=== PATIENT | male | born 1975 | race Caucasian/White ===

== ENCOUNTER 2022-03-01 09:20 | Inpatient (IN) | payer OTHER ==
[2022-03-02] MEDS ORDERED: Acetaminophen 325 MG TAB PO PRN (20:57)
[2022-03-02] MEDS ORDERED: Ondansetron PF 4 MG/2 ML Vial IVP PRN (20:57)
[2022-03-02] MEDS ORDERED: Nitroglycerin 0.4 MG TAB (25 Tab Bottle) SL PRN (21:05)
[2022-03-02] MEDS ORDERED: Morphine 4 MG/ML VIAL SLOW IVP SCH (21:15)
[2022-03-02] MEDS: Atorvastatin Calcium 20 MG TAB PO SCH (21:18)
[2022-03-02] MEDS: traMADol HCl 50 MG TAB PO PRN (23:48)
[2022-03-03] MEDS: Morphine 4 MG/ML VIAL SLOW IVP PRN ×5 (03:19→20:43)
[2022-03-03 04:04] LABS: #Eosinphils 0.2 thou/uL (0.0-0.7); #Lymphocytes 1.8 thou/uL (1.20-3.40); #Monocytes 0.6 thou/uL (0.11-0.59); %Basophils 0.4 % (0.0-1.0); %Eosinophils 2.6 % (0.0-10.0); %Lymphocytes 20.8 % (21.0-51.0); %Monocytes 7.3 % (0.0-10.0); %Neutrophils 68.9 % (42.0-75.0); Hemoglobin 12.5 g/dL (14.0-18.0); Mean Corpuscular HGB CONC 31.3 g/dL (32.0-36.0); Mean Corpuscular Hemoglobin 31.4 pg (27.0-31.0); Platelet Count 159 10x3/uL (130-400); RBC Distribution Width 13.4 % (11.5-14.5); Red Blood Cell (RBC) Count 3.98 mill/uL (4.70-6.10); White Blood Cell (WBC) Count 8.8 10x3/uL (4.8-10.8)
[2022-03-03 04:12] LABS: INR-International Normal Ratio 1.2; PTT 42.3 sec (22.9-36.1); Prothrombin Time 16.1 sec (12.0-14.7)
[2022-03-03 04:22] LABS: Anion Gap 13 mmol/L (10-20); BUN (Urea Nitrogen) 31 mg/dL (8.9-20.6); Calc. Creatinine Clearance 131 mL/min (70-130); Calcium 9.3 mg/dL (7.8-10.44); Carbon Dioxide 32 mmol/L (22-29); Chloride 95 mmol/L (98-107); Estimated GFR 71; Glucose 168 mg/dL (70-105); Magnesium 2.2 mg/dL (1.6-2.6); Potassium 4.4 mmol/L (3.5-5.1); Sodium 136 mmol/L (136-145)
[2022-03-03] MEDS: Furosemide 40 MG/4 ML VIAL SLOW IVP SCH ×2 (06:22→12:35)
[2022-03-03] MEDS: traMADol HCl 50 MG TAB PO PRN ×3 (06:26→23:04)
[2022-03-03] MEDS: Spironolactone 25 MG TAB PO SCH (07:43)
[2022-03-03] MEDS: Carvedilol 25 MG TAB PO SCH ×2 (07:43→16:21)
[2022-03-03] MEDS: DOBUTamine 500 mg/250 ml 500 MG in Premix Bag 1 BAG IVPB SCH ×2 (07:56→20:41)
[2022-03-03] MEDS ORDERED: FLU VACC QS2022-23(6MOS UP)/PF 60 MCG/0.5 ML SYRINGE IM ONE (09:00)
[2022-03-03] MEDS ORDERED: Prevnar 13-Val Conj/PF 0.5 ML SYRINGE IM ONE (09:00)
[2022-03-03] MEDS: Atorvastatin Calcium 20 MG TAB PO SCH (20:43)
[2022-03-04] MEDS: Morphine 4 MG/ML VIAL SLOW IVP PRN ×5 (01:10→21:32)
[2022-03-04 03:37] LABS: #Basophils 0.1 thou/uL (0.0-0.2); #Eosinphils 0.3 thou/uL (0.0-0.7); #Lymphocytes 1.8 thou/uL (1.20-3.40); #Monocytes 0.8 thou/uL (0.11-0.59); %Basophils 0.6 % (0.0-1.0); %Lymphocytes 20.5 % (21.0-51.0); %Monocytes 8.8 % (0.0-10.0); %Neutrophils 67.1 % (42.0-75.0); Hemoglobin 11.6 g/dL (14.0-18.0); Mean Corpuscular HGB CONC 31.9 g/dL (32.0-36.0); Mean Corpuscular Hemoglobin 31.3 pg (27.0-31.0); Mean Corpuscular Volume 98.4 fl (78.0-98.0); Mean Platelet Volume 8.1 fL (7.4-10.4); Platelet Count 135 10x3/uL (130-400); RBC Distribution Width 13.3 % (11.5-14.5); Red Blood Cell (RBC) Count 3.71 mill/uL (4.70-6.10)
[2022-03-04 04:00] LABS: Anion Gap 13 mmol/L (10-20); BUN (Urea Nitrogen) 29 mg/dL (8.9-20.6); Calc. Creatinine Clearance 139 mL/min (70-130); Carbon Dioxide 29 mmol/L (22-29); Chloride 94 mmol/L (98-107); Estimated GFR 76; Glucose 135 mg/dL (70-105); Sodium 131 mmol/L (136-145)
[2022-03-04] MEDS: Furosemide 40 MG/4 ML VIAL SLOW IVP SCH ×2 (05:19→14:23)
[2022-03-04] MEDS: Spironolactone 25 MG TAB PO SCH (08:10)
[2022-03-04] MEDS: Carvedilol 25 MG TAB PO SCH ×2 (08:10→17:28)
[2022-03-04] MEDS: DOBUTamine 500 mg/250 ml 500 MG in Premix Bag 1 BAG IVPB SCH ×2 (10:26→22:59)
[2022-03-04] MEDS: Losartan 25 MG TAB PO SCH (12:15)
[2022-03-04] MEDS ORDERED: Diazepam 5 MG TAB PO PRN (14:13)
[2022-03-04] MEDS ORDERED: Communication Order-Pharmacy FS SCH (14:13)
[2022-03-04] MEDS ORDERED: Communication Order-Pharmacy FS ONE (14:15)
[2022-03-04] MEDS: traMADol HCl 50 MG TAB PO PRN (17:50)
[2022-03-04] MEDS: Atorvastatin Calcium 20 MG TAB PO SCH (21:32)
[2022-03-05] MEDS: traMADol HCl 50 MG TAB PO PRN ×3 (02:23→20:29)
[2022-03-05 04:19] LABS: #Eosinphils 0.3 thou/uL (0.0-0.7); #Lymphocytes 1.9 thou/uL (1.20-3.40); #Monocytes 1.2 thou/uL (0.11-0.59); #Neutrophils 6.9 thou/uL (1.40-6.50); %Basophils 0.3 % (0.0-1.0); %Eosinophils 3.2 % (0.0-10.0); %Lymphocytes 18.3 % (21.0-51.0); %Monocytes 11.4 % (0.0-10.0); %Neutrophils 66.9 % (42.0-75.0); Hemoglobin 11.7 g/dL (14.0-18.0); Mean Corpuscular HGB CONC 32.5 g/dL (32.0-36.0); Mean Corpuscular Hemoglobin 31.7 pg (27.0-31.0); Mean Corpuscular Volume 97.6 fl (78.0-98.0); Mean Platelet Volume 7.9 fL (7.4-10.4); Platelet Count 141 10x3/uL (130-400); RBC Distribution Width 13.1 % (11.5-14.5); Red Blood Cell (RBC) Count 3.71 mill/uL (4.70-6.10); White Blood Cell (WBC) Count 10.3 10x3/uL (4.8-10.8)
[2022-03-05 04:35] LABS: Anion Gap 15 mmol/L (10-20); BUN (Urea Nitrogen) 31 mg/dL (8.9-20.6); Calc. Creatinine Clearance 141 mL/min (70-130); Calcium 9.3 mg/dL (7.8-10.44); Carbon Dioxide 26 mmol/L (22-29); Chloride 95 mmol/L (98-107); Estimated GFR 77; Glucose 112 mg/dL (70-105); Magnesium 2.3 mg/dL (1.6-2.6); Potassium 4.9 mmol/L (3.5-5.1); Sodium 131 mmol/L (136-145)
[2022-03-05] MEDS: Morphine 4 MG/ML VIAL SLOW IVP PRN ×2 (05:09→12:13)
[2022-03-05] MEDS: Furosemide 40 MG/4 ML VIAL SLOW IVP SCH ×2 (05:10→13:25)
[2022-03-05] MEDS: Carvedilol 25 MG TAB PO SCH ×2 (09:18→17:14)
[2022-03-05] MEDS: Spironolactone 25 MG TAB PO SCH (09:19)
[2022-03-05] MEDS: Losartan 25 MG TAB PO SCH (11:45)
[2022-03-05] MEDS: DOBUTamine 500 mg/250 ml 500 MG in Premix Bag 1 BAG IVPB SCH (12:20)
[2022-03-05] MEDS: Atorvastatin Calcium 20 MG TAB PO SCH (20:28)
[2022-03-06] MEDS: DOBUTamine 500 mg/250 ml 500 MG in Premix Bag 1 BAG IVPB SCH (02:34)
[2022-03-06 02:45] LABS: SARS-CoV-2 NAA Rapid Test Not Detected (NotDetected)
[2022-03-06] MEDS: Furosemide 40 MG/4 ML VIAL SLOW IVP SCH (05:15)
[2022-03-06] MEDS ORDERED: Dexamethasone 4 mg/ml Vial ONE (06:36)
[2022-03-06] MEDS ORDERED: Bupivacaine HCl 0.5%/Epinephrine 1:200,000/PF 30 ml Vial ONE (06:37)
[2022-03-06] MEDS ORDERED: fentaNYL PF 100 MCG/2 ML SYRINGE ONE (06:45)
[2022-03-06] MEDS ORDERED: Midazolam HCl 5 mg/5 ml Vial ONE (06:45)
[2022-03-06] MEDS ORDERED: Dexmedetomidine 200 MCG/2 ML VIAL ONE ×2 (06:45→07:04)
[2022-03-06] MEDS ORDERED: PHENYLEPHRINE-NS 100 MCG/ML 10 ML SYRINGE ONE (07:05)
[2022-03-06] MEDS ORDERED: Heparin 10,000 UNITS/1 ML VIAL 30,000 UNITS in Sodium Chloride 0.9% 1,000 ML FS SCH (07:15)
[2022-03-06] MEDS ORDERED: Milrinone 10 MG/10 ML VIAL ONE (07:15)
[2022-03-06] MEDS: Spironolactone 25 MG TAB PO SCH (07:26)
[2022-03-06] MEDS: Carvedilol 25 MG TAB PO SCH (07:26)
[2022-03-06] MEDS ORDERED: Sodium Bicarb 50 MEQ/50 ML Abboject 8.4% SYRINGE ONE (08:03)
[2022-03-06] MEDS ORDERED: Calcium Chloride 1 GM/10 ML Abboject SYRINGE ONE (08:03)
[2022-03-06] MEDS ORDERED: Vecuronium 10 MG VIAL ONE (08:03)
[2022-03-06] MEDS ORDERED: Heparin 5,000 UNITS/ML VIAL ONE (08:03)
[2022-03-06] MEDS ORDERED: Norepinephrine 4 MG/4 ML VIAL ONE (08:03)
[2022-03-06] MEDS ORDERED: Protamine Sulfate 250 MG/25 ML VIAL ONE (08:03)
[2022-03-06] MEDS ORDERED: Nitroglycerin 50 MG/250 ML BOT ONE (08:03)
[2022-03-06] MEDS ORDERED: Papaverine 60 MG/2 ML VIAL ONE (08:03)
[2022-03-06] MEDS ORDERED: Magnesium Sulfate 1 GM/2 ML VIAL ONE (08:03)
[2022-03-06] MEDS ORDERED: Heparin 30,000 units/30 ml VIAL ONE (08:03)
[2022-03-06] MEDS ORDERED: Aminocaproic Acid 5 GM/20 ML VIAL ONE (08:03)
[2022-03-06] MEDS ORDERED: Lidocaine 2% PF 100 mg/5 ml Syringe ONE (08:03)
[2022-03-06] MEDS ORDERED: Cardioplegic Soln 1,000 ML BAG ONE (08:03)
[2022-03-06] MEDS ORDERED: Thrombin 5000 UNITS/5 ML VIAL ONE (08:03)
[2022-03-06] MEDS ORDERED: Clindamycin/D5W 900 mg/50 ml Premix Bag ONE (08:07)
[2022-03-06] MEDS ORDERED: EPINEPHrine 1 MG/ML AMP ONE (09:29)
[2022-03-06 12:00] LABS: Actual Bicarbonate (HCO3a) 26.2 mEq/L (22-28); Base Excess (BEa) 1.2 mEq/L (-2.0 to +3.0); Calcium, Ionized (arterial) 1.13 mmol/L (1.12-1.30); Carboxyhemoglobin (COHb) 0.5 gm% (0.0-3.0); Hemoglobin (Hb) 11.6 g/dL (14.0-18.0); O2 Tension (PaO2), arterial 66.6 mmHg (80.0-100.0); Potassium - ABG Lab 5.41 mmol/L (3.70-5.30); Puncture Site Arterial Line
[2022-03-06] MEDS ORDERED: Hetastarch 6% 500 ML 500 ML IVPB PRN (12:10)
[2022-03-06] MEDS ORDERED: NOREPINEPHRINE 8 MG/250 ML-D5W 250 ML IVPB PRN (12:10)
[2022-03-06] MEDS ORDERED: Promethazine HCl 25 MG/ML VIAL IM PRN (12:10)
[2022-03-06] MEDS ORDERED: Bisacodyl 10 MG SUPP PR PRN (12:10)
[2022-03-06] MEDS ORDERED: niCARdipine 25 MG in Sodium Chloride 0.9% 250 ML 250 ML IVPB PRN (12:10)
[2022-03-06] MEDS ORDERED: Ventilator Sedation Protocol 1 EACH FS ONE (12:10)
[2022-03-06] MEDS ORDERED: Post-Op Insulin Drip Protocol IVPB ONE (12:10)
[2022-03-06] MEDS ORDERED: FENTANYL 50 MCG/ML 1 ML VIAL SLOW IVP PRN ×3 (12:10→18:44)
[2022-03-06] MEDS ORDERED: Nitroglycerin 50 MG/250 ML BOT 250 ML IVPB PRN (12:10)
[2022-03-06] MEDS ORDERED: Bisacodyl 5 MG TAB PO PRN (12:10)
[2022-03-06] MEDS ORDERED: Potassium Chloride 20 MEQ/100 ML PREMIX BAG IVPB PRN (12:10)
[2022-03-06] MEDS ORDERED: Mag-Al 1200 mg/1200 mg/30 ML UDCUP PO PRN (12:10)
[2022-03-06] MEDS ORDERED: Ondansetron PF 4 MG/2 ML Vial IVP PRN (12:10)
[2022-03-06] MEDS ORDERED: HYDROcodone/Acetaminophen 5/325 mg Tablet PO PRN ×3 (12:10→18:44)
[2022-03-06] MEDS ORDERED: Morphine 2 MG/ML VIAL SLOW IVP PRN (12:10)
[2022-03-06] MEDS ORDERED: Magnesium 2 GM/50 ML(in water) 2 GM in Premix Bag 1 BAG IVPB SCH (12:15)
[2022-03-06] MEDS ORDERED: D5 1/2 NS w/20 mEq KCL 1,000 ML IV SCH (12:15)
[2022-03-06 12:19] LABS: Mean Corpuscular HGB CONC 32.7 g/dL (32.0-36.0); Mean Corpuscular Hemoglobin 32.3 pg (27.0-31.0); Mean Platelet Volume 7.8 fL (7.4-10.4); Platelet Count 162 10x3/uL (130-400); White Blood Cell (WBC) Count 22.2 10x3/uL (4.8-10.8)
[2022-03-06 12:29] LABS: INR-International Normal Ratio 1.4; Prothrombin Time 18.1 sec (12.0-14.7)
[2022-03-06 12:30] LABS: PTT 44.1 sec (22.9-36.1)
[2022-03-06] MEDS ORDERED: Insulin Regular 300 UNITS/3 ML VIAL SC PRN (12:30)
[2022-03-06] MEDS ORDERED: Dextrose 5% in Water 1,000 ML IV PRN (12:30)
[2022-03-06] MEDS ORDERED: Dextrose 50% Abboject 50 ML SYRINGE SLOW IVP PRN (12:30)
[2022-03-06] MEDS ORDERED: HUMULIN R 100 UNITS in Sodium Chloride 0.9% 100 ML IVPB SCH (12:30)
[2022-03-06 12:34] LABS: Anion Gap 15 mmol/L (10-20); BUN (Urea Nitrogen) 31 mg/dL (8.9-20.6); Calc. Creatinine Clearance 126 mL/min (70-130); Calcium 8.5 mg/dL (7.8-10.44); Carbon Dioxide 24 mmol/L (22-29); Chloride 99 mmol/L (98-107); Estimated GFR 69; Glucose 208 mg/dL (70-105); Potassium 5.5 mmol/L (3.5-5.1); Sodium 132 mmol/L (136-145)
[2022-03-06 12:53] LABS: Band 24 % (5-11); Eosinophils 1 % (0-10); Lymphocytes 10 % (21-51); MDiff Complete? YES; Metamyelocyte 1 % (0-0); Monocytes 2 % (0-10); Neutrophil 62 % (42-75); Platelet Morphology Comment Appears Adequate; RBC Morphology Normal
[2022-03-06] MEDS ORDERED: Midazolam HCl 2 mg/2 ml Vial SLOW IVP PRN (13:18)
[2022-03-06] MEDS: Losartan 25 MG TAB PO SCH (13:28)
[2022-03-06] MEDS ORDERED: DISCONTINUE PREVIOUS NARCOTIC PAIN MEDICATIONS AND BENZODIAZEPINES FS SCH (13:30)
[2022-03-06] MEDS ORDERED: Propofol 1,000 MG/100 ML VIAL IV PRN (13:30)
[2022-03-06] MEDS ORDERED: Fentanyl CADD 100 ML IV SCH (13:30)
[2022-03-06] MEDS ORDERED: Morphine 4 MG/ML VIAL SLOW IVP PRN (13:30)
[2022-03-06] MEDS ORDERED: Propofol BOLUS 1,000 MG/100 ML VIAL IV PRN (13:30)
[2022-03-06] MEDS ORDERED: Fentanyl BOLUS 250 ML IVPB PRN (13:30)
[2022-03-06] MEDS ORDERED: Fentanyl CADD 100 ML ONE (13:32)
[2022-03-06] MEDS: CEFAZOLIN 2 GM in Sodium Chloride 0.9% 100 ML IVPB SCH ×2 (13:57→21:05)
[2022-03-06] MEDS: Clindamycin/D5W 900 MG in Premix Bag 1 BAG IVPB SCH ×2 (15:01→19:45)
[2022-03-06] MEDS: DOBUTamine 500 mg/250 ml 250 ML IVPB SCH (17:35)
[2022-03-06 17:47] LABS: Actual Bicarbonate (HCO3a) 26.1 mEq/L (22-28); Base Excess (BEa) 1.7 mEq/L (-2.0 to +3.0); CO2 Tension 39.9 mmHg (35.0-45.0); Calcium, Ionized (arterial) 1.13 mmol/L (1.12-1.30); Carboxyhemoglobin (COHb) 0.2 gm% (0.0-3.0); Hemoglobin (Hb) 11.1 g/dL (14.0-18.0); O2 Tension (PaO2), arterial 68.7 mmHg (80.0-100.0); Potassium - ABG Lab 4.89 mmol/L (3.70-5.30); pH, Arterial 7.43 (7.35-7.45)
[2022-03-06 17:48] LABS: ALV-art Gradient 202.275 mmHg (0-20); Puncture Site Arterial Line
[2022-03-06] MEDS: Budesonide 0.5 MG/2 ML NEB NEB SCH (18:44)
[2022-03-06] MEDS: HYDROcodone/Acetaminophen 5/325 mg Tablet PO PRN (18:48)
[2022-03-06 18:54] LABS: Hemoglobin 9.9 g/dL (14.0-18.0)
[2022-03-06 18:58] LABS: Potassium 4.8 mmol/L (3.5-5.1)
[2022-03-06] MEDS ORDERED: Albumin 25% 25 GM/100 ML BOT IVPB PRN (20:03)
[2022-03-06] MEDS: Famotidine/PF 20 mg/2ml Vial SLOW IVP SCH (20:34)
[2022-03-06] MEDS: Atorvastatin Calcium 40 MG TAB PO SCH (20:34)
[2022-03-07] MEDS: Clindamycin/D5W 900 MG in Premix Bag 1 BAG IVPB SCH ×2 (01:23→07:48)
[2022-03-07 04:31] LABS: #Lymphocytes 0.7 thou/uL (1.20-3.40); #Monocytes 0.5 thou/uL (0.11-0.59); #Neutrophils 8.8 thou/uL (1.40-6.50); %Basophils 0.1 % (0.0-1.0); %Eosinophils 0.1 % (0.0-10.0); %Lymphocytes 6.8 % (21.0-51.0); %Monocytes 4.6 % (0.0-10.0); %Neutrophils 88.5 % (42.0-75.0); Hemoglobin 9.9 g/dL (14.0-18.0); Mean Corpuscular Hemoglobin 31.5 pg (27.0-31.0); Mean Corpuscular Volume 98.4 fl (78.0-98.0); Mean Platelet Volume 8.5 fL (7.4-10.4); Platelet Count 122 10x3/uL (130-400); Red Blood Cell (RBC) Count 3.15 mill/uL (4.70-6.10); White Blood Cell (WBC) Count 9.9 10x3/uL (4.8-10.8)
[2022-03-07 04:41] LABS: Anion Gap 13 mmol/L (10-20); BUN (Urea Nitrogen) 33 mg/dL (8.9-20.6); Calc. Creatinine Clearance 127 mL/min (70-130); Calcium 8.3 mg/dL (7.8-10.44); Carbon Dioxide 24 mmol/L (22-29); Chloride 100 mmol/L (98-107); Estimated GFR 69; Glucose 111 mg/dL (70-105); Potassium 4.7 mmol/L (3.5-5.1); Sodium 132 mmol/L (136-145)
[2022-03-07] MEDS: FENTANYL 50 MCG/ML 1 ML VIAL SLOW IVP PRN ×5 (05:13→23:25)
[2022-03-07] MEDS: CEFAZOLIN 2 GM in Sodium Chloride 0.9% 100 ML IVPB SCH (05:58)
[2022-03-07] MEDS: DOBUTamine 500 mg/250 ml 250 ML IVPB SCH (06:51)
[2022-03-07] MEDS ORDERED: Dextrose 50% Abboject 50 ML SYRINGE SLOW IVP PRN (06:52)
[2022-03-07] MEDS ORDERED: HumaLOG 300 UNITS/3 ML VIAL SC PRN (06:52)
[2022-03-07] MEDS ORDERED: Dextrose 5% in Water 1,000 ML IV PRN (06:52)
[2022-03-07] MEDS: Budesonide 0.5 MG/2 ML NEB NEB SCH ×2 (07:45→18:43)
[2022-03-07] MEDS: Magnesium 2 GM/50 ML(in water) 2 GM in Premix Bag 1 BAG IVPB SCH (07:48)
[2022-03-07] MEDS: HYDROcodone/Acetaminophen 5/325 mg Tablet PO PRN ×3 (07:49→21:12)
[2022-03-07] MEDS: Famotidine/PF 20 mg/2ml Vial SLOW IVP SCH ×2 (07:50→20:27)
[2022-03-07] MEDS: Aspirin 325 MG TAB PO SCH (07:50)
[2022-03-07] MEDS ORDERED: Furosemide 40 MG/4 ML VIAL ONE (10:24)
[2022-03-07] MEDS ORDERED: Furosemide 40 MG/4 ML VIAL SLOW IVP SCH ×2 (10:45)
[2022-03-07] MEDS ORDERED: Insulin Glargine 30 UNITS/0.3 ML VIAL SC PRN (12:18)
[2022-03-07] MEDS: Furosemide 40 MG/4 ML VIAL SLOW IVP SCH (12:53)
[2022-03-07] MEDS: Atorvastatin Calcium 40 MG TAB PO SCH (20:28)
[2022-03-08] MEDS: FENTANYL 50 MCG/ML 1 ML VIAL SLOW IVP PRN ×3 (01:51→14:26)
[2022-03-08] MEDS: HYDROcodone/Acetaminophen 5/325 mg Tablet PO PRN ×5 (03:36→21:38)
[2022-03-08] MEDS: DOBUTamine 500 mg/250 ml 250 ML IVPB SCH (04:27)
[2022-03-08 04:42] LABS: #Eosinphils 0.1 thou/uL (0.0-0.7); #Lymphocytes 1.6 thou/uL (1.20-3.40); #Monocytes 1.1 thou/uL (0.11-0.59); #Neutrophils 11.7 thou/uL (1.40-6.50); %Basophils 0.1 % (0.0-1.0); %Eosinophils 0.7 % (0.0-10.0); %Lymphocytes 10.7 % (21.0-51.0); %Monocytes 7.6 % (0.0-10.0); %Neutrophils 80.8 % (42.0-75.0); Mean Corpuscular Hemoglobin 32.4 pg (27.0-31.0); Mean Corpuscular Volume 98.1 fl (78.0-98.0); Mean Platelet Volume 8.2 fL (7.4-10.4); Platelet Count 134 10x3/uL (130-400); RBC Distribution Width 13.1 % (11.5-14.5); Red Blood Cell (RBC) Count 3.09 mill/uL (4.70-6.10); White Blood Cell (WBC) Count 14.5 10x3/uL (4.8-10.8)
[2022-03-08 05:15] LABS: Anion Gap 14 mmol/L (10-20); BUN (Urea Nitrogen) 35 mg/dL (8.9-20.6); Calc. Creatinine Clearance 112 mL/min (70-130); Calcium 8.6 mg/dL (7.8-10.44); Carbon Dioxide 23 mmol/L (22-29); Chloride 98 mmol/L (98-107); Estimated GFR 59; Glucose 217 mg/dL (70-105); Potassium 4.4 mmol/L (3.5-5.1); Sodium 131 mmol/L (136-145)
[2022-03-08] MEDS: Furosemide 40 MG/4 ML VIAL SLOW IVP SCH ×2 (05:58→14:13)
[2022-03-08] MEDS ORDERED: DOBUTamine 500 mg/250 ml 250 ML IVPB SCH (06:57)
[2022-03-08] MEDS ORDERED: Metolazone 5 MG TAB PO SCH (07:00)
[2022-03-08] MEDS: Budesonide 0.5 MG/2 ML NEB NEB SCH ×2 (07:43→18:19)
[2022-03-08] MEDS: Famotidine/PF 20 mg/2ml Vial SLOW IVP SCH ×2 (07:59→20:59)
[2022-03-08] MEDS: Aspirin 325 MG TAB PO SCH (07:59)
[2022-03-08] MEDS: Magnesium 2 GM/50 ML(in water) 2 GM in Premix Bag 1 BAG IVPB SCH (07:59)
[2022-03-08] MEDS: Guaifenesin DM 100-10/5 ML UDCUP PO PRN (10:19)
[2022-03-08] MEDS ORDERED: Zolpidem Tartrate 5 MG TAB PO PRN (10:32)
[2022-03-08 11:00] VITALS: BMI 39.9
[2022-03-08] MEDS: Acetaminophen 325 MG TAB PO PRN (20:59)
[2022-03-08] MEDS: Atorvastatin Calcium 40 MG TAB PO SCH (20:59)
[2022-03-08] MEDS ORDERED: HumaLOG 300 UNITS/3 ML VIAL SC PRN (21:28)
[2022-03-08] MEDS ORDERED: Melatonin 3 MG TAB PO SCH (21:30)
[2022-03-08] MEDS ORDERED: FENTANYL 50 MCG/ML 1 ML VIAL SLOW IVP SCH (22:45)
[2022-03-08] MEDS ORDERED: Menthol/Camphor Lotion 222 ml Bottle TOP PRN (23:42)
[2022-03-08] MEDS ORDERED: Methyl Salicylate/Menthol 85 GM TUBE TOP PRN (23:54)
[2022-03-09] MEDS: HYDROcodone/Acetaminophen 5/325 mg Tablet PO PRN ×5 (01:30→19:33)
[2022-03-09] MEDS: Guaifenesin DM 100-10/5 ML UDCUP PO PRN ×2 (01:31→19:34)
[2022-03-09 05:16] LABS: #Eosinphils 0.4 thou/uL (0.0-0.7); #Lymphocytes 1.4 thou/uL (1.20-3.40); #Monocytes 1.3 thou/uL (0.11-0.59); #Neutrophils 9.4 thou/uL (1.40-6.50); %Basophils 0.2 % (0.0-1.0); %Eosinophils 2.8 % (0.0-10.0); %Lymphocytes 11.5 % (21.0-51.0); %Monocytes 10.7 % (0.0-10.0); %Neutrophils 74.8 % (42.0-75.0); Hemoglobin 8.6 g/dL (14.0-18.0); Mean Corpuscular HGB CONC 32.1 g/dL (32.0-36.0); Mean Corpuscular Hemoglobin 31.5 pg (27.0-31.0); Mean Platelet Volume 7.9 fL (7.4-10.4); Platelet Count 138 10x3/uL (130-400); RBC Distribution Width 12.9 % (11.5-14.5); Red Blood Cell (RBC) Count 2.74 mill/uL (4.70-6.10); White Blood Cell (WBC) Count 12.5 10x3/uL (4.8-10.8)
[2022-03-09 05:40] LABS: Anion Gap 14 mmol/L (10-20); BUN (Urea Nitrogen) 47 mg/dL (8.9-20.6); Calc. Creatinine Clearance 97 mL/min (70-130); Calcium 8.5 mg/dL (7.8-10.44); Carbon Dioxide 24 mmol/L (22-29); Chloride 97 mmol/L (98-107); Estimated GFR 51; Glucose 159 mg/dL (70-105); Potassium 4.3 mmol/L (3.5-5.1); Sodium 131 mmol/L (136-145)
[2022-03-09] MEDS: Furosemide 40 MG/4 ML VIAL SLOW IVP SCH ×2 (06:21→13:00)
[2022-03-09] MEDS: Budesonide 0.5 MG/2 ML NEB NEB SCH ×2 (07:32→18:53)
[2022-03-09] MEDS: Aspirin 325 MG TAB PO SCH (08:15)
[2022-03-09] MEDS: Famotidine/PF 20 mg/2ml Vial SLOW IVP SCH (08:49)
[2022-03-09] MEDS ORDERED: FENTANYL 50 MCG/ML 1 ML VIAL SLOW IVP SCH (09:00)
[2022-03-09] MEDS ORDERED: Mag-Al 1200 mg/1200 mg/30 ML UDCUP PO PRN (09:26)
[2022-03-09] MEDS ORDERED: Bisacodyl 10 MG SUPP PR PRN (09:26)
[2022-03-09] MEDS ORDERED: diphenhydrAMINE 25 MG CAP PO PRN (09:26)
[2022-03-09] MEDS ORDERED: Bisacodyl 5 MG TAB PO PRN (09:26)
[2022-03-09] MEDS ORDERED: Mineral Oil ENEMA PR PRN (09:26)
[2022-03-09] MEDS ORDERED: Zolpidem Tartrate 5 MG TAB PO PRN (09:26)
[2022-03-09] MEDS ORDERED: Nitroglycerin 0.4 MG TAB (25 Tab Bottle) SL PRN (09:26)
[2022-03-09] MEDS ORDERED: Clopidogrel Bisulfate 75 MG TAB PO SCH (09:45)
[2022-03-09] MEDS ORDERED: Aspirin 81 mg Enteric Coated Tablet PO SCH (09:45)
[2022-03-09] MEDS ORDERED: Famotidine 20 MG TAB PO SCH (09:45)
[2022-03-09] MEDS: Clopidogrel Bisulfate 75 MG TAB PO SCH (10:35)
[2022-03-09] MEDS: Famotidine 20 MG TAB PO SCH (19:33)
[2022-03-09] MEDS: Atorvastatin Calcium 40 MG TAB PO SCH (19:33)
[2022-03-10] MEDS: HYDROcodone/Acetaminophen 5/325 mg Tablet PO PRN ×2 (00:24→05:24)
[2022-03-10] MEDS: Furosemide 40 MG/4 ML VIAL SLOW IVP SCH (05:24)
[2022-03-10] MEDS ORDERED: Morphine 4 MG/ML VIAL SLOW IVP SCH (06:45)
[2022-03-10] MEDS: Budesonide 0.5 MG/2 ML NEB NEB SCH ×2 (06:56→18:57)
[2022-03-10] MEDS: Famotidine 20 MG TAB PO SCH ×2 (08:47→20:32)
[2022-03-10] MEDS: Clopidogrel Bisulfate 75 MG TAB PO SCH (08:47)
[2022-03-10] MEDS: Aspirin 81 mg Enteric Coated Tablet PO SCH (08:48)
[2022-03-10] MEDS: HYDROcodone/Acetaminophen 10/325 mg Tablet PO PRN ×3 (11:07→20:32)
[2022-03-10 11:11] LABS: #Eosinphils 0.4 thou/uL (0.0-0.7); #Lymphocytes 1.4 thou/uL (1.20-3.40); #Monocytes 0.9 thou/uL (0.11-0.59); #Neutrophils 9.3 thou/uL (1.40-6.50); %Basophils 0.1 % (0.0-1.0); %Eosinophils 3.7 % (0.0-10.0); %Lymphocytes 11.5 % (21.0-51.0); %Neutrophils 77.6 % (42.0-75.0); Hemoglobin 8.5 g/dL (14.0-18.0); Mean Corpuscular HGB CONC 32.4 g/dL (32.0-36.0); Mean Corpuscular Hemoglobin 32.1 pg (27.0-31.0); Mean Corpuscular Volume 98.8 fl (78.0-98.0); Mean Platelet Volume 7.8 fL (7.4-10.4); Platelet Count 162 10x3/uL (130-400); RBC Distribution Width 13.1 % (11.5-14.5); Red Blood Cell (RBC) Count 2.65 mill/uL (4.70-6.10)
[2022-03-10 11:35] LABS: Anion Gap 14 mmol/L (10-20); BUN (Urea Nitrogen) 51 mg/dL (8.9-20.6); Calc. Creatinine Clearance 94 mL/min (70-130); Calcium 8.5 mg/dL (7.8-10.44); Carbon Dioxide 26 mmol/L (22-29); Chloride 93 mmol/L (98-107); Estimated GFR 49; Glucose 163 mg/dL (70-105); Potassium 3.9 mmol/L (3.5-5.1); Sodium 129 mmol/L (136-145)
[2022-03-10] MEDS: Cyclobenzaprine 10 MG TAB PO PRN ×2 (13:00→20:32)
[2022-03-10] MEDS: Atorvastatin Calcium 40 MG TAB PO SCH (20:32)
[2022-03-10] MEDS: Guaifenesin DM 100-10/5 ML UDCUP PO PRN (21:39)
[2022-03-11] MEDS: HYDROcodone/Acetaminophen 10/325 mg Tablet PO PRN ×3 (00:46→22:11)
[2022-03-11] MEDS: Guaifenesin DM 100-10/5 ML UDCUP PO PRN (01:44)
[2022-03-11] MEDS: Acetaminophen 325 MG TAB PO PRN (04:23)
[2022-03-11 04:53] LABS: #Eosinphils 0.5 thou/uL (0.0-0.7); #Lymphocytes 1.7 thou/uL (1.20-3.40); #Monocytes 1.3 thou/uL (0.11-0.59); #Neutrophils 11.1 thou/uL (1.40-6.50); %Basophils 0.2 % (0.0-1.0); %Eosinophils 3.6 % (0.0-10.0); %Lymphocytes 11.6 % (21.0-51.0); %Monocytes 8.6 % (0.0-10.0); Hemoglobin 8.9 g/dL (14.0-18.0); Mean Corpuscular HGB CONC 31.7 g/dL (32.0-36.0); Mean Corpuscular Hemoglobin 31.2 pg (27.0-31.0); Mean Corpuscular Volume 98.3 fl (78.0-98.0); Mean Platelet Volume 7.6 fL (7.4-10.4); Platelet Count 212 10x3/uL (130-400); RBC Distribution Width 13.1 % (11.5-14.5); Red Blood Cell (RBC) Count 2.85 mill/uL (4.70-6.10); White Blood Cell (WBC) Count 14.6 10x3/uL (4.8-10.8)
[2022-03-11 05:06] LABS: Anion Gap 14 mmol/L (10-20); BUN (Urea Nitrogen) 51 mg/dL (8.9-20.6); Calc. Creatinine Clearance 99 mL/min (70-130); Calcium 8.7 mg/dL (7.8-10.44); Carbon Dioxide 25 mmol/L (22-29); Chloride 94 mmol/L (98-107); Estimated GFR 52; Glucose 223 mg/dL (70-105); Potassium 4.6 mmol/L (3.5-5.1); Sodium 128 mmol/L (136-145)
[2022-03-11] MEDS: Budesonide 0.5 MG/2 ML NEB NEB SCH ×2 (06:49→19:05)
[2022-03-11] MEDS ORDERED: NOREPINEPHRINE 8 MG/250 ML-D5W 250 ML IVPB SCH (07:30)
[2022-03-11] MEDS ORDERED: Furosemide 40 MG/4 ML VIAL SLOW IVP SCH (07:30)
[2022-03-11 07:44] LABS: Actual Bicarbonate (HCO3v) 26 mEq/L (22-28); Base Excess 0.5 mEq/L (-2.0 to +3.0); Calcium, Ionized (venous) 1.09 mmol/L (1.16-1.32); Chloride (VBG) 95 mmol/L (98-106); Hemoglobin (Hb) 9.6 g/dL (13.2-17.3); Potassium (VBG) 4.37 mmol/L (3.70-5.30); Sodium 126.7 mmol/L (133-146); pH (venous) 7.38 (7.32-7.43)
[2022-03-11] MEDS: Aspirin 81 mg Enteric Coated Tablet PO SCH (08:21)
[2022-03-11] MEDS: Famotidine 20 MG TAB PO SCH ×2 (08:21→20:01)
[2022-03-11] MEDS: Clopidogrel Bisulfate 75 MG TAB PO SCH (08:23)
[2022-03-11] MEDS: Furosemide 40 MG/4 ML VIAL SLOW IVP SCH (08:42)
[2022-03-11] MEDS: DOBUTamine 500 mg/250 ml 250 ML IVPB SCH ×2 (10:48→22:13)
[2022-03-11] MEDS: Atorvastatin Calcium 40 MG TAB PO SCH (20:01)
[2022-03-11] MEDS: Cyclobenzaprine 10 MG TAB PO PRN (20:01)
[2022-03-12] MEDS: HYDROcodone/Acetaminophen 10/325 mg Tablet PO PRN ×2 (01:57→08:55)
[2022-03-12] MEDS: Budesonide 0.5 MG/2 ML NEB NEB SCH ×2 (07:33→18:18)
[2022-03-12] MEDS: Furosemide 40 MG/4 ML VIAL SLOW IVP SCH (08:45)
[2022-03-12] MEDS: Aspirin 81 mg Enteric Coated Tablet PO SCH (08:46)
[2022-03-12] MEDS: Famotidine 20 MG TAB PO SCH ×2 (08:46→20:23)
[2022-03-12] MEDS: Clopidogrel Bisulfate 75 MG TAB PO SCH (08:46)
[2022-03-12] MEDS ORDERED: Empagliflozin 10 MG TAB PO SCH (10:45)
[2022-03-12] MEDS ORDERED: Iron, Sodium Ferric Gluconate 250 MG in Sodium Chloride 0.9% 250 ML 250 ML IVPB SCH (11:30)
[2022-03-12] MEDS ORDERED: DOBUTamine 500 mg/250 ml 250 ML ONE (12:54)
[2022-03-12] MEDS: DOBUTamine 500 mg/250 ml 250 ML IVPB SCH ×2 (12:55→19:24)
[2022-03-12] MEDS ORDERED: Amiodarone 200 MG TAB PO SCH (13:30)
[2022-03-12] MEDS ORDERED: Enoxaparin Sodium 30 MG/0.3 ML SYRINGE SC SCH ×2 (13:30→21:00)
[2022-03-12] MEDS: Atorvastatin Calcium 40 MG TAB PO SCH (20:23)
[2022-03-12] MEDS: Amiodarone 200 MG TAB PO SCH (20:23)
[2022-03-13] MEDS: DOBUTamine 500 mg/250 ml 250 ML IVPB SCH ×3 (01:06→16:46)
[2022-03-13] MEDS: Budesonide 0.5 MG/2 ML NEB NEB SCH ×2 (07:05→18:08)
[2022-03-13] MEDS: HYDROcodone/Acetaminophen 10/325 mg Tablet PO PRN ×2 (08:06→16:48)
[2022-03-13] MEDS ORDERED: Furosemide 40 MG/4 ML VIAL SLOW IVP SCH (09:00)
[2022-03-13] MEDS ORDERED: Empagliflozin 10 MG TAB PO SCH (09:00)
[2022-03-13 09:26] LABS: #Eosinphils 0.3 thou/uL (0.0-0.7); #Lymphocytes 1.3 thou/uL (1.20-3.40); #Monocytes 1.2 thou/uL (0.11-0.59); #Neutrophils 11.7 thou/uL (1.40-6.50); %Basophils 0.1 % (0.0-1.0); %Eosinophils 2.2 % (0.0-10.0); %Lymphocytes 8.7 % (21.0-51.0); %Monocytes 8.2 % (0.0-10.0); %Neutrophils 80.8 % (42.0-75.0); Hemoglobin 8.2 g/dL (14.0-18.0); Mean Corpuscular HGB CONC 31.3 g/dL (32.0-36.0); Mean Corpuscular Hemoglobin 30.2 pg (27.0-31.0); Mean Corpuscular Volume 96.6 fl (78.0-98.0); Mean Platelet Volume 7.5 fL (7.4-10.4); Platelet Count 233 10x3/uL (130-400); RBC Distribution Width 13.5 % (11.5-14.5); White Blood Cell (WBC) Count 14.4 10x3/uL (4.8-10.8)
[2022-03-13 09:51] LABS: Anion Gap 17 mmol/L (10-20); BUN (Urea Nitrogen) 62 mg/dL (8.9-20.6); Calc. Creatinine Clearance 86 mL/min (70-130); Calcium 8.6 mg/dL (7.8-10.44); Carbon Dioxide 22 mmol/L (22-29); Chloride 93 mmol/L (98-107); Estimated GFR 44; Glucose 150 mg/dL (70-105); Potassium 4.7 mmol/L (3.5-5.1); Sodium 127 mmol/L (136-145)
[2022-03-13] MEDS: Amiodarone 200 MG TAB PO SCH ×3 (10:02→20:06)
[2022-03-13] MEDS: Aspirin 81 mg Enteric Coated Tablet PO SCH (10:02)
[2022-03-13] MEDS: Enoxaparin Sodium 30 MG/0.3 ML SYRINGE SC SCH (10:03)
[2022-03-13] MEDS: Clopidogrel Bisulfate 75 MG TAB PO SCH (10:03)
[2022-03-13] MEDS: Famotidine 20 MG TAB PO SCH ×2 (10:03→20:06)
[2022-03-13] MEDS ORDERED: Hetastarch 6% 500 ML 500 ML IVPB SCH (15:30)
[2022-03-13] MEDS ORDERED: ALPRAZolam 0.25 MG TAB PO PRN (17:21)
[2022-03-13] MEDS: Atorvastatin Calcium 40 MG TAB PO SCH (20:06)
[2022-03-13] MEDS ORDERED: Cepastat Lozenges 1 LOZ PO PRN (21:33)
[2022-03-13] MEDS ORDERED: EPINEPHrine 1 MG/10 ML Abboject SYRINGE ONE (21:43)
[2022-03-13] MEDS ORDERED: DOBUTamine 500 mg/250 ml 250 ML ONE (21:51)
[2022-03-13] MEDS ORDERED: Fentanyl CADD 100 ML ONE (21:58)
[2022-03-13 22:25] LABS: #Eosinphils 0.4 thou/uL (0.0-0.7); #Lymphocytes 2.8 thou/uL (1.20-3.40); #Monocytes 1.3 thou/uL (0.11-0.59); #Neutrophils 11.6 thou/uL (1.40-6.50); %Eosinophils 2.7 % (0.0-10.0); %Lymphocytes 17.3 % (21.0-51.0); %Monocytes 8.2 % (0.0-10.0); %Neutrophils 71.8 % (42.0-75.0); Hemoglobin 8.2 g/dL (14.0-18.0); Mean Corpuscular HGB CONC 32.2 g/dL (32.0-36.0); Mean Corpuscular Hemoglobin 32.1 pg (27.0-31.0); Mean Corpuscular Volume 99.7 fl (78.0-98.0); Mean Platelet Volume 7.2 fL (7.4-10.4); Platelet Count 224 10x3/uL (130-400); RBC Distribution Width 13.3 % (11.5-14.5); Red Blood Cell (RBC) Count 2.54 mill/uL (4.70-6.10); White Blood Cell (WBC) Count 16.1 10x3/uL (4.8-10.8)
[2022-03-13 22:26] LABS: Troponin I 0.502 ng/mL (< 0.028)
[2022-03-13 22:32] LABS: Actual Bicarbonate (HCO3a) 16.3 mEq/L (22-28); Base Excess (BEa) -9.6 mEq/L (-2.0 to +3.0); CO2 Tension 35.3 mmHg (35.0-45.0); Calcium, Ionized (arterial) 1.08 mmol/L (1.12-1.30); Carboxyhemoglobin (COHb) 0.3 gm% (0.0-3.0); Hemoglobin (Hb) 8.9 g/dL (14.0-18.0); Potassium - ABG Lab 5.14 mmol/L (3.70-5.30); pH, Arterial 7.28 (7.35-7.45)
[2022-03-13 22:43] LABS: Lactic Acid 5.4 mmol/L (0.5-2.2)
[2022-03-13 22:44] LABS: ALT (SGPT) 11 U/L (8-55); AST (SGOT) 17 U/L (5-34); Albumin 3.3 g/dL (3.5-5.0); Alkaline Phosphatase 201 U/L (40-110); Anion Gap 19 mmol/L (10-20); BUN (Urea Nitrogen) 67 mg/dL (8.9-20.6); Bilirubin, Total 1.2 mg/dL (0.2-1.2); Calc. Creatinine Clearance 69 mL/min (70-130); Calcium 8.3 mg/dL (7.8-10.44); Carbon Dioxide 21 mmol/L (22-29); Chloride 92 mmol/L (98-107); Estimated GFR 34; Globulin 3.3 g/dL (2.4-3.5); Glucose 246 mg/dL (70-105); Potassium 4.8 mmol/L (3.5-5.1); Protein, Total 6.6 g/dL (6.0-8.3); Sodium 127 mmol/L (136-145)
[2022-03-13 23:27] LABS: O2 Tension (PaO2), arterial 53.6 mmHg (80.0-100.0); Puncture Site RBA
[2022-03-13 23:28] LABS: ALV-art Gradient 615.275 mmHg (0-20)
[2022-03-13] MEDS ORDERED: Piperacillin/Tazobactam 2.5 GM in Sodium Chloride 0.9% 100 ML IVPB SCH (23:45)
[2022-03-13] MEDS ORDERED: Piperacillin/Tazobactam 3.375 GM in Sodium Chloride 0.9% 100 ML IVPB SCH (23:59)
[2022-03-14] MEDS ORDERED: NOREPINEPHRINE 8 MG/250 ML-D5W 250 ML IVPB PRN (00:12)
[2022-03-14] MEDS ORDERED: Insulin Regular 300 UNITS/3 ML VIAL SC PRN (00:12)
[2022-03-14] MEDS ORDERED: Ventilator Sedation Protocol 1 EACH FS SCH (00:15)
[2022-03-14] MEDS ORDERED: Midazolam HCl 2 mg/2 ml Vial SLOW IVP PRN (00:23)
[2022-03-14] MEDS ORDERED: Fentanyl CADD 100 ML IV SCH (00:30)
[2022-03-14] MEDS ORDERED: Propofol BOLUS 1,000 MG/100 ML VIAL IV PRN (00:30)
[2022-03-14] MEDS ORDERED: Morphine 4 MG/ML VIAL SLOW IVP PRN (00:30)
[2022-03-14] MEDS ORDERED: Propofol 1,000 MG/100 ML VIAL IV PRN (00:30)
[2022-03-14] MEDS ORDERED: Fentanyl BOLUS 250 ML IVPB PRN (00:30)
[2022-03-14] MEDS ORDERED: DISCONTINUE PREVIOUS NARCOTIC PAIN MEDICATIONS AND BENZODIAZEPINES FS SCH (00:30)
[2022-03-14 00:31] LABS: Actual Bicarbonate (HCO3a) 22.5 mEq/L (22-28); Base Excess (BEa) -0.7 mEq/L (-2.0 to +3.0); CO2 Tension 30.8 mmHg (35.0-45.0); Calcium, Ionized (arterial) 1.02 mmol/L (1.12-1.30); Carboxyhemoglobin (COHb) 0.1 gm% (0.0-3.0); Hemoglobin (Hb) 8.1 g/dL (14.0-18.0); O2 Tension (PaO2), arterial 63.3 mmHg (80.0-100.0); Potassium - ABG Lab 5.02 mmol/L (3.70-5.30); Puncture Site Arterial Line; pH, Arterial 7.48 (7.35-7.45)
[2022-03-14] MEDS: Ipratropium Bromide 2.5 ml Neb NEB SCH ×4 (00:43→18:13)
[2022-03-14 00:53] LABS: Lactic Acid 1.7 mmol/L (0.5-2.2)
[2022-03-14] MEDS ORDERED: VANCOMYCIN 1.25 GM/250 ML BAG 1.25 GM in Premix Bag 1 BAG IVPB SCH (01:00)
[2022-03-14] MEDS: DOBUTamine 500 mg/250 ml 250 ML IVPB SCH ×3 (02:26→16:38)
[2022-03-14] MEDS: Piperacillin/Tazobactam 3.375 GM in Sodium Chloride 0.9% 100 ML IVPB SCH ×2 (04:07→12:24)
[2022-03-14 04:23] LABS: #Eosinphils 0.4 thou/uL (0.0-0.7); #Lymphocytes 1.4 thou/uL (1.20-3.40); #Monocytes 1.3 thou/uL (0.11-0.59); %Basophils 0.1 % (0.0-1.0); %Eosinophils 2.6 % (0.0-10.0); %Lymphocytes 8.6 % (21.0-51.0); %Monocytes 7.8 % (0.0-10.0); %Neutrophils 80.9 % (42.0-75.0); Hemoglobin 7.8 g/dL (14.0-18.0); Mean Corpuscular HGB CONC 34.2 g/dL (32.0-36.0); Mean Corpuscular Hemoglobin 32.8 pg (27.0-31.0); Mean Corpuscular Volume 96.2 fl (78.0-98.0); Mean Platelet Volume 7.5 fL (7.4-10.4); Platelet Count 243 10x3/uL (130-400); RBC Distribution Width 13.3 % (11.5-14.5); Red Blood Cell (RBC) Count 2.38 mill/uL (4.70-6.10)
[2022-03-14 04:28] LABS: Anion Gap 17 mmol/L (10-20); BUN (Urea Nitrogen) 72 mg/dL (8.9-20.6); Calc. Creatinine Clearance 65 mL/min (70-130); Calcium 7.8 mg/dL (7.8-10.44); Carbon Dioxide 20 mmol/L (22-29); Chloride 93 mmol/L (98-107); Estimated GFR 32; Glucose 167 mg/dL (70-105); Potassium 4.7 mmol/L (3.5-5.1); Sodium 125 mmol/L (136-145)
[2022-03-14 04:46] LABS: Magnesium 2.7 mg/dL (1.6-2.6)
[2022-03-14] MEDS: Budesonide 0.5 MG/2 ML NEB NEB SCH ×2 (06:58→18:13)
[2022-03-14 07:26] LABS: Actual Bicarbonate (HCO3a) 23.5 mEq/L (22-28); Base Excess (BEa) -0.5 mEq/L (-2.0 to +3.0); CO2 Tension 35.7 mmHg (35.0-45.0); Calcium, Ionized (arterial) 1.04 mmol/L (1.12-1.30); Carboxyhemoglobin (COHb) 0.2 gm% (0.0-3.0); Hemoglobin (Hb) 8.8 g/dL (14.0-18.0); O2 Tension (PaO2), arterial 72.4 mmHg (80.0-100.0); Potassium - ABG Lab 4.88 mmol/L (3.70-5.30); pH, Arterial 7.44 (7.35-7.45)
[2022-03-14 07:27] LABS: Puncture Site Arterial Line
[2022-03-14 07:28] LABS: ALV-art Gradient 595.975 mmHg (0-20)
[2022-03-14] MEDS ORDERED: Empagliflozin 10 MG TAB PO SCH (09:00)
[2022-03-14] MEDS ORDERED: Famotidine 20 MG TAB PO SCH (09:00)
[2022-03-14] MEDS ORDERED: Aspirin Chewable 81 MG TAB PER TUBE SCH (10:15)
[2022-03-14] MEDS ORDERED: CALCIUM GLUC 1GM/NS 50ML 1 GM in Premix Bag 1 BAG IVPB SCH (11:00)
[2022-03-14] MEDS: Enoxaparin Sodium 30 MG/0.3 ML SYRINGE SC SCH (11:51)
[2022-03-14] MEDS: Amiodarone 200 MG TAB PO SCH ×2 (11:53→16:14)
[2022-03-14] MEDS: Clopidogrel Bisulfate 75 MG TAB PO SCH (11:53)
[2022-03-14] MEDS: Aspirin 81 mg Enteric Coated Tablet PO SCH (12:18)
[2022-03-14] MEDS ORDERED: Fentanyl CADD 100 ML ONE (12:19)
[2022-03-14] MEDS ORDERED: Vasopressin 20 UNIT, Admixture Fee 1 EACH in Sodium Chloride 0.9% 50 ML IV PRN (13:12)
[2022-03-14 15:58] LABS: Actual Bicarbonate (HCO3a) 20.5 mEq/L (22-28); Base Excess (BEa) -3.8 mEq/L (-2.0 to +3.0); CO2 Tension 33.7 mmHg (35.0-45.0); Calcium, Ionized (arterial) 1.05 mmol/L (1.12-1.30); Carboxyhemoglobin (COHb) 0.2 gm% (0.0-3.0); Hemoglobin (Hb) 8.3 g/dL (14.0-18.0); O2 Tension (PaO2), arterial 72.2 mmHg (80.0-100.0); Potassium - ABG Lab 5.37 mmol/L (3.70-5.30)
[2022-03-14 15:59] LABS: ALV-art Gradient 491.725 mmHg (0-20); Puncture Site Arterial Line
[2022-03-14 18:16] VITALS: BP 134/69
[2022-03-14] MEDS ORDERED: Vecuronium 10 MG VIAL ONE (18:20)
[2022-03-14] MEDS ORDERED: Sterile Water 10 ML ONE (18:20)
[2022-03-14] MEDS ORDERED: Midazolam HCl 2 mg/2 ml Vial ONE (18:23)
[2022-03-14] MEDS ORDERED: Vecuronium 10 MG VIAL IVP SCH (18:45)
[2022-03-14] MEDS ORDERED: Midazolam HCl 2 mg/2 ml Vial SLOW IVP SCH (18:45)
[2022-03-14] MEDS ORDERED: Heparin 5,000 UNITS/ML VIAL SLOW IVP SCH (19:15)
[2022-03-14 21:02] VITALS: TEMP 98.6
[2022-03-14 22:40] LABS: Actual Bicarbonate (HCO3a) 23.1 mEq/L (22-28); Base Excess (BEa) -3.6 mEq/L (-2.0 to +3.0); CO2 Tension 49.9 mmHg (35.0-45.0); Calcium, Ionized (arterial) 1.05 mmol/L (1.12-1.30); Hemoglobin (Hb) 9.1 g/dL (14.0-18.0); Potassium - ABG Lab 5.89 mmol/L (3.70-5.30); pH, Arterial 7.28 (7.35-7.45)
[2022-03-14 22:40] LABS: Actual Bicarbonate (HCO3a) 22.7 mEq/L (22-28); Base Excess (BEa) -2.7 mEq/L (-2.0 to +3.0); CO2 Tension 41.8 mmHg (35.0-45.0); Calcium, Ionized (arterial) 0.97 mmol/L (1.12-1.30); Carboxyhemoglobin (COHb) 0.7 gm% (0.0-3.0); Hemoglobin (Hb) 8.4 g/dL (14.0-18.0); O2 Tension (PaO2), arterial 464.1 mmHg (80.0-100.0); Potassium - ABG Lab 5.28 mmol/L (3.70-5.30); pH, Arterial 7.35 (7.35-7.45)
[2022-03-14 22:46] LABS: O2 Tension (PaO2), arterial 57.6 mmHg (80.0-100.0); Puncture Site ALINE
[2022-03-14 22:47] LABS: ALV-art Gradient 593.025 mmHg (0-20)
[2022-03-14 22:50] LABS: Puncture Site ALINE
[2022-03-15] MEDS ORDERED: Aspirin Chewable 81 MG TAB PER TUBE SCH ×2 (09:00)
== END 2022-03-14 19:45 | disposition short-term general hospital (02) | DRG 235 ==
LOC: CCU 03-02 20:03 → 2NO 03-09 13:55 → CCU 03-11 07:39 → IMCU/EMU 03-11 17:06 → CCU 03-12 12:31
PROVIDERS: ADMIT Internal Medicine; ATTEND Internal Medicine
PROC: 02100Z9 Bypass Coronary Artery, One Artery from Left Internal Mammary, Open Approach (ICD-10-PCS; principal; 2022-03-05)
PROC: 021209W Bypass Coronary Artery, Three Arteries from Aorta with Autologous Venous Tissue, Open Approach (ICD-10-PCS; 2022-03-05)
PROC: 06BQ4ZZ Excision of Left Saphenous Vein, Percutaneous Endoscopic Approach (ICD-10-PCS; 2022-03-05)
PROC: 02L70CK Occlusion of Left Atrial Appendage with Extraluminal Device, Open Approach (ICD-10-PCS; 2022-03-05)
PROC: 3E043XZ Introduction of Vasopressor into Central Vein, Percutaneous Approach (ICD-10-PCS; 2022-03-05)
PROC: 5A1935Z Respiratory Ventilation, Less than 24 Consecutive Hours (ICD-10-PCS; 2022-03-13)
PROC: 5A1221Z Performance of Cardiac Output, Continuous (ICD-10-PCS; 2022-03-13)
PROC: 5A12012 Performance of Cardiac Output, Single, Manual (ICD-10-PCS; 2022-03-13)
PROC: 0BH17EZ Insertion of Endotracheal Airway into Trachea, Via Natural or Artificial Opening (ICD-10-PCS; 2022-03-13)
PROC: 3E03329 Introduction of Other Anti-infective into Peripheral Vein, Percutaneous Approach (ICD-10-PCS; 2022-03-13)
PROC: 5A09357 Assistance with Respiratory Ventilation, Less than 24 Consecutive Hours, Continuous Positive Airway Pressure (ICD-10-PCS; 2022-03-13)
PROC: 30233N1 Transfusion of Nonautologous Red Blood Cells into Peripheral Vein, Percutaneous Approach (ICD-10-PCS; 2022-03-14)
PROC: 04HY32Z Insertion of Monitoring Device into Lower Artery, Percutaneous Approach (ICD-10-PCS; 2022-03-14)
PROC: 02HV33Z Insertion of Infusion Device into Superior Vena Cava, Percutaneous Approach (ICD-10-PCS; 2022-03-14)
PROC: B548ZZA Ultrasonography of Superior Vena Cava, Guidance (ICD-10-PCS; 2022-03-14)
PROC: 0D9670Z Drainage of Stomach with Drainage Device, Via Natural or Artificial Opening (ICD-10-PCS; 2022-03-14)
DX: I25.110 Atherosclerotic heart disease of native coronary artery with unstable angina pectoris (principal); I50.23 Acute on chronic systolic (congestive) heart failure; Z20.822 Contact with and (suspected) exposure to COVID-19; A41.9 Sepsis, unspecified organism; G93.41 Metabolic encephalopathy; I46.2 Cardiac arrest due to underlying cardiac condition; R57.0 Cardiogenic shock; N17.0 Acute kidney failure with tubular necrosis; J96.21 Acute and chronic respiratory failure with hypoxia; R65.21 Severe sepsis with septic shock; E87.1 Hypo-osmolality and hyponatremia; I13.0 Hypertensive heart and chronic kidney disease with heart failure and stage 1 through stage 4 chronic kidney disease, or unspecified chronic kidney disease; E66.2 Morbid (severe) obesity with alveolar hypoventilation; F32.A Depression, unspecified; E11.65 Type 2 diabetes mellitus with hyperglycemia; J45.909 Unspecified asthma, uncomplicated; F17.210 Nicotine dependence, cigarettes, uncomplicated; I25.5 Ischemic cardiomyopathy; E78.00 Pure hypercholesterolemia, unspecified; F12.10 Cannabis abuse, uncomplicated; E87.5 Hyperkalemia; E03.9 Hypothyroidism, unspecified; D63.1 Anemia in chronic kidney disease; N18.30 Chronic kidney disease, stage 3 unspecified; E88.09 Other disorders of plasma-protein metabolism, not elsewhere classified; E11.22 Type 2 diabetes mellitus with diabetic chronic kidney disease; Z78.1 Physical restraint status; Z82.49 Family history of ischemic heart disease and other diseases of the circulatory system; Z90.49 Acquired absence of other specified parts of digestive tract; Z98.890 Other specified postprocedural states; Z68.39 Body mass index [BMI] 39.0-39.9, adult; Z79.899 Other long term (current) drug therapy
CPT/HCPCS: 36415; 36416; 36430; 36600; 71045; 80048; 82533; 82805; 83605; 83735; 83880; 83930; 83935; 84145; 84439; 84443; 84484; 85025; 85610; 85730; 86850; 86900; 86901; 87040; 87070; 87077; 87086; 87186; 87205; 87811; 93005; 93010; 93306; 93798; 93970; 94002; 94003; 94640; 97139; C1713; C1751; C1776; J0171; J0610; J1100; J1250; J1642; J1644; J1650; J1815; J1940; J2001; J2250; J2260; J2270; J2440; J2543; J2704; J2720; J3010; J3370; J3475; J3480; J3490; J7070; J7620; J7626; P9016; S0017; S0028; U0002

== ENCOUNTER 2022-04-13 12:31 | Inpatient (IN) | payer OTHER ==
[2022-04-13 20:20] LABS: #Eosinphils 0.7 thou/uL (0.0-0.7); #Lymphocytes 1.8 thou/uL (1.20-3.40); #Monocytes 0.4 thou/uL (0.11-0.59); #Neutrophils 5.1 thou/uL (1.40-6.50); %Basophils 0.2 % (0.0-1.0); %Eosinophils 8.6 % (0.0-10.0); %Lymphocytes 21.9 % (21.0-51.0); %Monocytes 5.5 % (0.0-10.0); %Neutrophils 63.7 % (42.0-75.0); Hemoglobin 11.4 g/dL (14.0-18.0); Mean Corpuscular HGB CONC 31.8 g/dL (32.0-36.0); Mean Corpuscular Hemoglobin 30.8 pg (27.0-31.0); Mean Corpuscular Volume 96.8 fl (78.0-98.0); Mean Platelet Volume 7.2 fL (7.4-10.4); Platelet Count 234 10x3/uL (130-400); Red Blood Cell (RBC) Count 3.69 mill/uL (4.70-6.10)
[2022-04-13 20:40] LABS: ALT (SGPT) 15 U/L (8-55); AST (SGOT) 26 U/L (5-34); Albumin 3.8 g/dL (3.5-5.0); Alkaline Phosphatase 164 U/L (40-110); Anion Gap 20 mmol/L (10-20); BUN (Urea Nitrogen) 91 mg/dL (8.9-20.6); Bilirubin, Total 1.8 mg/dL (0.2-1.2); Calc. Creatinine Clearance 0 mL/min (70-130); Calcium 9.6 mg/dL (7.8-10.44); Carbon Dioxide 26 mmol/L (22-29); Chloride 104 mmol/L (98-107); Estimated GFR 28; Globulin 4.8 g/dL (2.4-3.5); Glucose 143 mg/dL (70-105); Potassium 3.7 mmol/L (3.5-5.1); Protein, Total 8.6 g/dL (6.0-8.3)
[2022-04-13 20:45] LABS: Sodium 146 mmol/L (136-145)
[2022-04-13] MEDS ORDERED: Lorazepam 2 MG/ML VIAL SLOW IVP SCH (20:45)
[2022-04-13] MEDS ORDERED: Meropenem 1 GM in Sodium Chloride 0.9% 100 ML IVPB SCH (21:00)
[2022-04-13] MEDS: Mirtazapine 15 MG Soltab PO SCH (23:29)
[2022-04-13] MEDS: QUEtiapine 25 MG TAB PO SCH (23:29)
[2022-04-13] MEDS: Atorvastatin Calcium 20 MG TAB PO SCH (23:29)
[2022-04-13] MEDS: rOPINIRole HCl 0.25 MG TAB PO SCH (23:30)
[2022-04-14 04:34] LABS: #Basophils 0.1 thou/uL (0.0-0.2); #Eosinphils 0.7 thou/uL (0.0-0.7); #Lymphocytes 2.1 thou/uL (1.20-3.40); #Monocytes 0.6 thou/uL (0.11-0.59); #Neutrophils 4.4 thou/uL (1.40-6.50); %Basophils 0.9 % (0.0-1.0); %Eosinophils 8.6 % (0.0-10.0); %Lymphocytes 27.1 % (21.0-51.0); %Monocytes 7.3 % (0.0-10.0); %Neutrophils 56.1 % (42.0-75.0); Hemoglobin 11.2 g/dL (14.0-18.0); Mean Corpuscular HGB CONC 32.1 g/dL (32.0-36.0); Mean Corpuscular Hemoglobin 31.4 pg (27.0-31.0); Mean Corpuscular Volume 97.9 fl (78.0-98.0); Mean Platelet Volume 7.2 fL (7.4-10.4); Platelet Count 205 10x3/uL (130-400); RBC Distribution Width 16.1 % (11.5-14.5); Red Blood Cell (RBC) Count 3.57 mill/uL (4.70-6.10); White Blood Cell (WBC) Count 7.9 10x3/uL (4.8-10.8)
[2022-04-14 05:11] LABS: ALT (SGPT) 15 U/L (8-55); AST (SGOT) 22 U/L (5-34); Albumin 3.3 g/dL (3.5-5.0); Alkaline Phosphatase 147 U/L (40-110); Anion Gap 16 mmol/L (10-20); BUN (Urea Nitrogen) 88 mg/dL (8.9-20.6); Bilirubin, Total 1.7 mg/dL (0.2-1.2); Calc. Creatinine Clearance 55 mL/min (70-130); Carbon Dioxide 25 mmol/L (22-29); Chloride 105 mmol/L (98-107); Estimated GFR 33; Globulin 4.4 g/dL (2.4-3.5); Glucose 127 mg/dL (70-105); Potassium 3.4 mmol/L (3.5-5.1); Protein, Total 7.7 g/dL (6.0-8.3); Sodium 143 mmol/L (136-145)
[2022-04-14] MEDS: Acetaminophen 325 MG TAB PER TUBE PRN (05:30)
[2022-04-14] MEDS: Levothyroxine Sodium 50 MCG TAB PO SCH (05:31)
[2022-04-14] MEDS ORDERED: Potassium Chloride 10 MEQ in Premix Bag 1 BAG IVPB SCH (08:15)
[2022-04-14] MEDS: Aspirin 81 mg Enteric Coated Tablet PO SCH (08:44)
[2022-04-14] MEDS: Amiodarone 200 MG TAB PO SCH (08:46)
[2022-04-14] MEDS: Senokot S 8.6-50 MG TAB PO SCH (08:48)
[2022-04-14] MEDS: Sildenafil Citrate 20 MG TAB PO SCH (08:52)
[2022-04-14] MEDS ORDERED: MACITENTAN PO SCH (09:00)
[2022-04-14] MEDS ORDERED: FLU VACC QS2022-23(6MOS UP)/PF 60 MCG/0.5 ML SYRINGE IM ONE (09:00)
[2022-04-14] MEDS ORDERED: Famotidine 20 MG TAB PER TUBE SCH (09:00)
[2022-04-14] MEDS: Pantoprazole 40 MG VIAL IVP SCH (09:04)
[2022-04-14] MEDS: Furosemide 40 MG/4 ML VIAL SLOW IVP SCH (09:04)
[2022-04-14] MEDS: Meropenem 1 GM in Sodium Chloride 0.9% 100 ML IVPB SCH ×2 (09:05→21:35)
[2022-04-14] MEDS: rOPINIRole HCl 0.25 MG TAB PO SCH ×3 (09:20→21:35)
[2022-04-14] MEDS: Polyethylene Glycol 3350 17 GM Packet PER TUBE SCH (10:00)
[2022-04-14] MEDS: Lorazepam 2 MG/ML VIAL SLOW IVP PRN ×2 (15:51→21:35)
[2022-04-14] MEDS: Atorvastatin Calcium 20 MG TAB PO SCH (21:35)
[2022-04-14] MEDS: QUEtiapine 25 MG TAB PO SCH (21:35)
[2022-04-14] MEDS: Mirtazapine 15 MG Soltab PO SCH (21:35)
[2022-04-15] MEDS: Lorazepam 2 MG/ML VIAL SLOW IVP PRN ×3 (03:24→21:51)
[2022-04-15 04:31] LABS: #Basophils 0.1 thou/uL (0.0-0.2); #Eosinphils 0.4 thou/uL (0.0-0.7); #Lymphocytes 1.7 thou/uL (1.20-3.40); #Monocytes 0.5 thou/uL (0.11-0.59); #Neutrophils 4.5 thou/uL (1.40-6.50); %Basophils 0.9 % (0.0-1.0); %Eosinophils 5.9 % (0.0-10.0); %Lymphocytes 23.1 % (21.0-51.0); %Monocytes 7.3 % (0.0-10.0); %Neutrophils 62.8 % (42.0-75.0); Hemoglobin 10.1 g/dL (14.0-18.0); Mean Corpuscular HGB CONC 32.8 g/dL (32.0-36.0); Mean Corpuscular Volume 94.3 fl (78.0-98.0); Platelet Count 208 10x3/uL (130-400); RBC Distribution Width 15.8 % (11.5-14.5); Red Blood Cell (RBC) Count 3.25 mill/uL (4.70-6.10); White Blood Cell (WBC) Count 7.2 10x3/uL (4.8-10.8)
[2022-04-15 04:46] LABS: ALT (SGPT) 15 U/L (8-55); AST (SGOT) 32 U/L (5-34); Albumin 3.3 g/dL (3.5-5.0); Alkaline Phosphatase 133 U/L (40-110); Anion Gap 16 mmol/L (10-20); BUN (Urea Nitrogen) 71 mg/dL (8.9-20.6); Bilirubin, Total 1.6 mg/dL (0.2-1.2); Calc. Creatinine Clearance 66 mL/min (70-130); Calcium 8.9 mg/dL (7.8-10.44); Carbon Dioxide 25 mmol/L (22-29); Chloride 103 mmol/L (98-107); Estimated GFR 42; Globulin 4.1 g/dL (2.4-3.5); Glucose 153 mg/dL (70-105); Potassium 3.3 mmol/L (3.5-5.1); Protein, Total 7.4 g/dL (6.0-8.3); Sodium 141 mmol/L (136-145)
[2022-04-15] MEDS: Levothyroxine Sodium 50 MCG TAB PO SCH (06:44)
[2022-04-15] MEDS ORDERED: Potassium Chloride 20 MEQ TAB PER TUBE SCH (08:00)
[2022-04-15] MEDS ORDERED: Electrolyte Replacement Protocol 1 EACH FS SCH (09:20)
[2022-04-15] MEDS: Aspirin 81 mg Enteric Coated Tablet PO SCH (09:39)
[2022-04-15] MEDS: Senokot S 8.6-50 MG TAB PO SCH (09:40)
[2022-04-15] MEDS: Furosemide 40 MG/4 ML VIAL SLOW IVP SCH (09:40)
[2022-04-15] MEDS: Amiodarone 200 MG TAB PO SCH (09:40)
[2022-04-15] MEDS: Pantoprazole 40 MG VIAL IVP SCH (09:40)
[2022-04-15] MEDS: Meropenem 1 GM in Sodium Chloride 0.9% 100 ML IVPB SCH ×2 (09:40→20:08)
[2022-04-15] MEDS: Polyethylene Glycol 3350 17 GM Packet PER TUBE SCH (09:40)
[2022-04-15] MEDS: Scopolamine 1.5 mg/72 hour Patch TD SCH (09:56)
[2022-04-15] MEDS: Sildenafil Citrate 20 MG TAB PO SCH (13:35)
[2022-04-15] MEDS ORDERED: Spironolactone 25 MG TAB PER TUBE SCH (14:30)
[2022-04-15 14:39] LABS: Potassium 3.3 mmol/L (3.5-5.1)
[2022-04-15 14:45] LABS: Magnesium 2.4 mg/dL (1.6-2.6)
[2022-04-15] MEDS: Sildenafil Citrate 20 MG TAB PER TUBE SCH ×2 (15:24→20:09)
[2022-04-15] MEDS: Mirtazapine 15 MG Soltab PO SCH (20:08)
[2022-04-15] MEDS: Atorvastatin Calcium 20 MG TAB PO SCH (20:09)
[2022-04-15] MEDS: QUEtiapine 25 MG TAB PO SCH (20:09)
[2022-04-15] MEDS: Carvedilol 6.25 MG TAB PER TUBE SCH (20:09)
[2022-04-15] MEDS ORDERED: Potassium Bicarbonate/Cit Ac 20 MEQ TAB PER TUBE SCH (22:45)
[2022-04-16 03:48] LABS: #Eosinphils 0.3 thou/uL (0.0-0.7); #Lymphocytes 2.1 thou/uL (1.20-3.40); #Monocytes 0.7 thou/uL (0.11-0.59); #Neutrophils 3.8 thou/uL (1.40-6.50); %Basophils 0.5 % (0.0-1.0); %Eosinophils 4.5 % (0.0-10.0); %Monocytes 9.7 % (0.0-10.0); %Neutrophils 55.3 % (42.0-75.0); Hemoglobin 10.7 g/dL (14.0-18.0); Mean Corpuscular HGB CONC 32.2 g/dL (32.0-36.0); Mean Corpuscular Hemoglobin 31.2 pg (27.0-31.0); Mean Platelet Volume 7.3 fL (7.4-10.4); Platelet Count 184 10x3/uL (130-400); Red Blood Cell (RBC) Count 3.44 mill/uL (4.70-6.10); White Blood Cell (WBC) Count 6.9 10x3/uL (4.8-10.8)
[2022-04-16] MEDS: Levothyroxine Sodium 50 MCG TAB PO SCH (05:21)
[2022-04-16 08:08] LABS: Albumin 3.4 g/dL (3.5-5.0)
[2022-04-16 08:09] LABS: Chloride 105 mmol/L (98-107); Potassium 3.6 mmol/L (3.5-5.1); Sodium 147 mmol/L (136-145)
[2022-04-16 08:10] LABS: Glucose 185 mg/dL (70-105)
[2022-04-16 08:11] LABS: Globulin 4.1 g/dL (2.4-3.5); Protein, Total 7.5 g/dL (6.0-8.3)
[2022-04-16 08:12] LABS: Anion Gap 16 mmol/L (10-20); Bilirubin, Total 1.5 mg/dL (0.2-1.2); Carbon Dioxide 30 mmol/L (22-29)
[2022-04-16 08:13] LABS: Alkaline Phosphatase 139 U/L (40-110)
[2022-04-16 08:14] LABS: Calc. Creatinine Clearance 66 mL/min (70-130); Estimated GFR 43
[2022-04-16 08:15] LABS: BUN (Urea Nitrogen) 57 mg/dL (8.9-20.6)
[2022-04-16 08:16] LABS: ALT (SGPT) 13 U/L (8-55); AST (SGOT) 29 U/L (5-34)
[2022-04-16] MEDS: Spironolactone 25 MG TAB PER TUBE SCH (08:36)
[2022-04-16] MEDS: Amiodarone 200 MG TAB PO SCH (08:36)
[2022-04-16] MEDS: Furosemide 40 MG/4 ML VIAL SLOW IVP SCH ×2 (08:36→10:27)
[2022-04-16] MEDS: Carvedilol 6.25 MG TAB PER TUBE SCH ×2 (08:37→21:39)
[2022-04-16] MEDS: Aspirin 81 mg Enteric Coated Tablet PO SCH (08:37)
[2022-04-16] MEDS: Meropenem 1 GM in Sodium Chloride 0.9% 100 ML IVPB SCH ×2 (08:37→21:37)
[2022-04-16] MEDS: Sertraline 25 MG TAB PER TUBE SCH (08:37)
[2022-04-16] MEDS: Sildenafil Citrate 20 MG TAB PER TUBE SCH ×3 (08:38→21:41)
[2022-04-16] MEDS: Senokot S 8.6-50 MG TAB PO SCH (08:38)
[2022-04-16] MEDS: Polyethylene Glycol 3350 17 GM Packet PER TUBE SCH (08:39)
[2022-04-16] MEDS: Pantoprazole 40 MG VIAL IVP SCH (08:59)
[2022-04-16] MEDS ORDERED: Sertraline 100 MG TAB PER TUBE SCH (09:00)
[2022-04-16] MEDS: Lorazepam 2 MG/ML VIAL SLOW IVP PRN ×2 (15:21→21:39)
[2022-04-16 18:28] LABS: Anion Gap 16 mmol/L (10-20); BUN (Urea Nitrogen) 55 mg/dL (8.9-20.6); Calc. Creatinine Clearance 71 mL/min (70-130); Calcium 8.8 mg/dL (7.8-10.44); Carbon Dioxide 29 mmol/L (22-29); Chloride 106 mmol/L (98-107); Estimated GFR 47; Glucose 183 mg/dL (70-105); Potassium 3.7 mmol/L (3.5-5.1); Sodium 147 mmol/L (136-145)
[2022-04-16] MEDS: Ondansetron PF 4 MG/2 ML Vial IVP PRN (21:39)
[2022-04-16] MEDS: Atorvastatin Calcium 20 MG TAB PO SCH (21:40)
[2022-04-16] MEDS: QUEtiapine 25 MG TAB PO SCH (21:40)
[2022-04-16] MEDS: Mirtazapine 15 MG Soltab PO SCH (21:40)
[2022-04-17] MEDS: Meropenem 1 GM in Sodium Chloride 0.9% 100 ML IVPB SCH ×3 (05:18→21:11)
[2022-04-17] MEDS: Levothyroxine Sodium 50 MCG TAB PO SCH (05:19)
[2022-04-17] MEDS: Acetaminophen 325 MG TAB PER TUBE PRN (06:12)
[2022-04-17] MEDS: Senokot S 8.6-50 MG TAB PO SCH (08:27)
[2022-04-17] MEDS: Polyethylene Glycol 3350 17 GM Packet PER TUBE SCH (08:27)
[2022-04-17] MEDS: Sertraline 25 MG TAB PER TUBE SCH (08:36)
[2022-04-17] MEDS: Aspirin 81 mg Enteric Coated Tablet PO SCH (08:36)
[2022-04-17] MEDS: Sildenafil Citrate 20 MG TAB PER TUBE SCH ×2 (08:36→14:53)
[2022-04-17] MEDS: Spironolactone 25 MG TAB PER TUBE SCH (08:37)
[2022-04-17] MEDS: Pantoprazole 40 MG VIAL IVP SCH (08:37)
[2022-04-17] MEDS: Carvedilol 6.25 MG TAB PER TUBE SCH ×2 (08:37→21:12)
[2022-04-17] MEDS: Amiodarone 200 MG TAB PO SCH (08:37)
[2022-04-17 09:46] LABS: #Eosinphils 0.5 thou/uL (0.0-0.7); #Monocytes 0.7 thou/uL (0.11-0.59); #Neutrophils 5.1 thou/uL (1.40-6.50); %Basophils 0.4 % (0.0-1.0); %Eosinophils 6.1 % (0.0-10.0); %Lymphocytes 23.7 % (21.0-51.0); %Monocytes 8.7 % (0.0-10.0); %Neutrophils 61.1 % (42.0-75.0); Hemoglobin 10.1 g/dL (14.0-18.0); Mean Corpuscular HGB CONC 32.1 g/dL (32.0-36.0); Mean Corpuscular Hemoglobin 31.2 pg (27.0-31.0); Mean Corpuscular Volume 97.3 fl (78.0-98.0); Mean Platelet Volume 6.8 fL (7.4-10.4); Platelet Count 175 10x3/uL (130-400); RBC Distribution Width 15.8 % (11.5-14.5); Red Blood Cell (RBC) Count 3.22 mill/uL (4.70-6.10); White Blood Cell (WBC) Count 8.3 10x3/uL (4.8-10.8)
[2022-04-17 10:06] LABS: ALT (SGPT) 14 U/L (8-55); AST (SGOT) 25 U/L (5-34); Albumin 3.3 g/dL (3.5-5.0); Alkaline Phosphatase 129 U/L (40-110); Anion Gap 15 mmol/L (10-20); BUN (Urea Nitrogen) 49 mg/dL (8.9-20.6); Bilirubin, Total 1.5 mg/dL (0.2-1.2); Calc. Creatinine Clearance 69 mL/min (70-130); Calcium 8.7 mg/dL (7.8-10.44); Carbon Dioxide 29 mmol/L (22-29); Chloride 105 mmol/L (98-107); Estimated GFR 46; Globulin 4.1 g/dL (2.4-3.5); Glucose 148 mg/dL (70-105); Magnesium 2.5 mg/dL (1.6-2.6); Potassium 4.2 mmol/L (3.5-5.1); Protein, Total 7.4 g/dL (6.0-8.3); Sodium 145 mmol/L (136-145)
[2022-04-17] MEDS: Lorazepam 2 MG/ML VIAL SLOW IVP PRN ×2 (12:17→21:11)
[2022-04-17] MEDS: Mirtazapine 15 MG Soltab PO SCH (21:11)
[2022-04-17] MEDS: Ondansetron PF 4 MG/2 ML Vial IVP PRN (21:11)
[2022-04-17] MEDS: QUEtiapine 25 MG TAB PO SCH (21:12)
[2022-04-17] MEDS: Atorvastatin Calcium 20 MG TAB PO SCH (21:12)
[2022-04-18 03:39] LABS: #Eosinphils 0.4 thou/uL (0.0-0.7); #Lymphocytes 2.5 thou/uL (1.20-3.40); #Monocytes 0.8 thou/uL (0.11-0.59); #Neutrophils 5.1 thou/uL (1.40-6.50); %Basophils 0.4 % (0.0-1.0); %Lymphocytes 28.1 % (21.0-51.0); %Monocytes 8.4 % (0.0-10.0); %Neutrophils 58.1 % (42.0-75.0); Mean Corpuscular HGB CONC 33.3 g/dL (32.0-36.0); Mean Corpuscular Hemoglobin 32.1 pg (27.0-31.0); Mean Corpuscular Volume 96.2 fl (78.0-98.0); Mean Platelet Volume 7.1 fL (7.4-10.4); Platelet Count 159 10x3/uL (130-400); RBC Distribution Width 15.9 % (11.5-14.5); Red Blood Cell (RBC) Count 3.11 mill/uL (4.70-6.10); White Blood Cell (WBC) Count 8.8 10x3/uL (4.8-10.8)
[2022-04-18 04:17] LABS: Anion Gap 15 mmol/L (10-20); BUN (Urea Nitrogen) 48 mg/dL (8.9-20.6); Calc. Creatinine Clearance 75 mL/min (70-130); Calcium 8.7 mg/dL (7.8-10.44); Carbon Dioxide 27 mmol/L (22-29); Chloride 105 mmol/L (98-107); Estimated GFR 50; Glucose 143 mg/dL (70-105); Magnesium 2.4 mg/dL (1.6-2.6); Potassium 4.1 mmol/L (3.5-5.1); Sodium 143 mmol/L (136-145)
[2022-04-18] MEDS: Lorazepam 2 MG/ML VIAL SLOW IVP PRN ×2 (04:17→17:19)
[2022-04-18] MEDS: Meropenem 1 GM in Sodium Chloride 0.9% 100 ML IVPB SCH ×3 (04:17→21:05)
[2022-04-18] MEDS: Levothyroxine Sodium 50 MCG TAB PO SCH (05:32)
[2022-04-18] MEDS: Scopolamine 1.5 mg/72 hour Patch TD SCH (08:59)
[2022-04-18] MEDS: Acetaminophen 325 MG TAB PER TUBE PRN ×2 (08:59→21:05)
[2022-04-18] MEDS: Aspirin 81 mg Enteric Coated Tablet PO SCH (09:00)
[2022-04-18] MEDS: Carvedilol 6.25 MG TAB PER TUBE SCH ×2 (09:00→21:04)
[2022-04-18] MEDS: Polyethylene Glycol 3350 17 GM Packet PER TUBE SCH (09:00)
[2022-04-18] MEDS: Senokot S 8.6-50 MG TAB PO SCH (09:00)
[2022-04-18] MEDS: Sertraline 25 MG TAB PER TUBE SCH (09:00)
[2022-04-18] MEDS: Amiodarone 200 MG TAB PO SCH (09:00)
[2022-04-18] MEDS ORDERED: Furosemide 20 MG/2 ML VIAL SLOW IVP SCH ×2 (09:00→14:00)
[2022-04-18] MEDS: Spironolactone 25 MG TAB PER TUBE SCH (09:00)
[2022-04-18] MEDS: Pantoprazole 40 MG VIAL IVP SCH (09:03)
[2022-04-18] MEDS: QUEtiapine 25 MG TAB PO SCH (21:04)
[2022-04-18] MEDS: Atorvastatin Calcium 20 MG TAB PO SCH (21:04)
[2022-04-18] MEDS: Mirtazapine 15 MG Soltab PO SCH (21:05)
[2022-04-18] MEDS: Ipratropium/Albuterol 3 ML NEB EZPAP PRN (21:32)
[2022-04-19] MEDS: Lorazepam 2 MG/ML VIAL SLOW IVP PRN ×2 (03:06→15:32)
[2022-04-19] MEDS: Meropenem 1 GM in Sodium Chloride 0.9% 100 ML IVPB SCH ×3 (05:47→20:14)
[2022-04-19] MEDS: Levothyroxine Sodium 50 MCG TAB PO SCH (05:47)
[2022-04-19 06:11] LABS: #Basophils 0.1 thou/uL (0.0-0.2); #Eosinphils 0.5 thou/uL (0.0-0.7); #Lymphocytes 2.3 thou/uL (1.20-3.40); #Monocytes 0.8 thou/uL (0.11-0.59); %Basophils 0.6 % (0.0-1.0); %Lymphocytes 26.7 % (21.0-51.0); %Monocytes 8.7 % (0.0-10.0); Hemoglobin 10.2 g/dL (14.0-18.0); Mean Corpuscular HGB CONC 31.8 g/dL (32.0-36.0); Mean Corpuscular Hemoglobin 31.2 pg (27.0-31.0); Mean Corpuscular Volume 98.3 fl (78.0-98.0); Mean Platelet Volume 7.5 fL (7.4-10.4); Platelet Count 143 10x3/uL (130-400); RBC Distribution Width 16.3 % (11.5-14.5); Red Blood Cell (RBC) Count 3.28 mill/uL (4.70-6.10); White Blood Cell (WBC) Count 8.6 10x3/uL (4.8-10.8)
[2022-04-19 06:31] LABS: Anion Gap 14 mmol/L (10-20); BUN (Urea Nitrogen) 46 mg/dL (8.9-20.6); Calc. Creatinine Clearance 80 mL/min (70-130); Calcium 8.7 mg/dL (7.8-10.44); Carbon Dioxide 28 mmol/L (22-29); Chloride 104 mmol/L (98-107); Estimated GFR 51; Glucose 160 mg/dL (70-105); Magnesium 2.3 mg/dL (1.6-2.6); Potassium 4.2 mmol/L (3.5-5.1); Sodium 142 mmol/L (136-145)
[2022-04-19] MEDS: Spironolactone 25 MG TAB PER TUBE SCH (08:13)
[2022-04-19] MEDS: Sertraline 25 MG TAB PER TUBE SCH (08:13)
[2022-04-19] MEDS: Aspirin 81 mg Enteric Coated Tablet PO SCH (08:13)
[2022-04-19] MEDS: Furosemide 20 MG/2 ML VIAL SLOW IVP SCH (08:13)
[2022-04-19] MEDS: Amiodarone 200 MG TAB PO SCH (08:13)
[2022-04-19] MEDS: Polyethylene Glycol 3350 17 GM Packet PER TUBE SCH (08:13)
[2022-04-19] MEDS: Carvedilol 6.25 MG TAB PER TUBE SCH ×2 (08:13→20:14)
[2022-04-19] MEDS: Senokot S 8.6-50 MG TAB PO SCH (08:13)
[2022-04-19] MEDS: Pantoprazole 40 MG VIAL IVP SCH (08:14)
[2022-04-19] MEDS ORDERED: Spironolactone 25 MG TAB PER TUBE SCH (09:00)
[2022-04-19] MEDS: Acetaminophen 325 MG TAB PER TUBE PRN (15:32)
[2022-04-19] MEDS: Ipratropium/Albuterol 3 ML NEB EZPAP PRN (15:58)
[2022-04-19] MEDS: QUEtiapine 25 MG TAB PO SCH (20:14)
[2022-04-19] MEDS: Mirtazapine 15 MG Soltab PO SCH (20:14)
[2022-04-19] MEDS: Atorvastatin Calcium 20 MG TAB PO SCH (20:14)
[2022-04-20] MEDS: Lorazepam 2 MG/ML VIAL SLOW IVP PRN ×4 (00:51→23:42)
[2022-04-20] MEDS: Meropenem 1 GM in Sodium Chloride 0.9% 100 ML IVPB SCH ×3 (04:40→19:50)
[2022-04-20] MEDS: Levothyroxine Sodium 50 MCG TAB PO SCH (06:00)
[2022-04-20 06:46] LABS: #Basophils 0.1 thou/uL (0.0-0.2); #Eosinphils 0.5 thou/uL (0.0-0.7); #Monocytes 0.7 thou/uL (0.11-0.59); #Neutrophils 6.7 thou/uL (1.40-6.50); %Basophils 0.5 % (0.0-1.0); %Eosinophils 4.6 % (0.0-10.0); %Lymphocytes 20.3 % (21.0-51.0); %Monocytes 6.9 % (0.0-10.0); %Neutrophils 67.7 % (42.0-75.0); Hemoglobin 10.1 g/dL (14.0-18.0); Mean Corpuscular HGB CONC 33.4 g/dL (32.0-36.0); Mean Corpuscular Hemoglobin 32.6 pg (27.0-31.0); Mean Corpuscular Volume 97.7 fl (78.0-98.0); Mean Platelet Volume 7.1 fL (7.4-10.4); Platelet Count 119 10x3/uL (130-400); RBC Distribution Width 15.9 % (11.5-14.5); Red Blood Cell (RBC) Count 3.09 mill/uL (4.70-6.10)
[2022-04-20 06:48] LABS: Hemoglobin A1c 5.3 % (4.0-6.0)
[2022-04-20 07:00] LABS: Anion Gap 15 mmol/L (10-20); BUN (Urea Nitrogen) 37 mg/dL (8.9-20.6); Calc. Creatinine Clearance 89 mL/min (70-130); Calcium 8.8 mg/dL (7.8-10.44); Carbon Dioxide 27 mmol/L (22-29); Chloride 101 mmol/L (98-107); Estimated GFR 59; Glucose 122 mg/dL (70-105); Magnesium 2.1 mg/dL (1.6-2.6); Potassium 4.2 mmol/L (3.5-5.1); Sodium 139 mmol/L (136-145)
[2022-04-20] MEDS: Aspirin 81 mg Enteric Coated Tablet PO SCH ×2 (07:39→10:08)
[2022-04-20] MEDS: Carvedilol 6.25 MG TAB PER TUBE SCH ×3 (07:39→19:51)
[2022-04-20] MEDS: Amiodarone 200 MG TAB PO SCH ×2 (07:39→10:07)
[2022-04-20] MEDS: Spironolactone 25 MG TAB PER TUBE SCH ×2 (07:39→10:08)
[2022-04-20] MEDS: Sertraline 25 MG TAB PER TUBE SCH ×2 (07:40→10:08)
[2022-04-20] MEDS: Polyethylene Glycol 3350 17 GM Packet PER TUBE SCH (07:43)
[2022-04-20] MEDS: Senokot S 8.6-50 MG TAB PO SCH (07:44)
[2022-04-20] MEDS: Furosemide 20 MG/2 ML VIAL SLOW IVP SCH (07:52)
[2022-04-20] MEDS: Pantoprazole 40 MG VIAL IVP SCH (07:54)
[2022-04-20] MEDS: Atorvastatin Calcium 20 MG TAB PO SCH (19:50)
[2022-04-20] MEDS: QUEtiapine 25 MG TAB PO SCH (19:50)
[2022-04-20] MEDS: Mirtazapine 15 MG Soltab PO SCH (19:50)
[2022-04-20] MEDS: Acetaminophen 325 MG TAB PER TUBE PRN (19:51)
[2022-04-21] MEDS: Meropenem 1 GM in Sodium Chloride 0.9% 100 ML IVPB SCH ×3 (04:39→20:16)
[2022-04-21] MEDS: Levothyroxine Sodium 50 MCG TAB PO SCH (04:39)
[2022-04-21] MEDS: Lorazepam 2 MG/ML VIAL SLOW IVP PRN ×2 (05:25→14:25)
[2022-04-21 06:38] LABS: #Basophils 0.1 thou/uL (0.0-0.2); #Eosinphils 0.3 thou/uL (0.0-0.7); #Monocytes 0.7 thou/uL (0.11-0.59); #Neutrophils 7.1 thou/uL (1.40-6.50); %Basophils 0.7 % (0.0-1.0); %Eosinophils 3.1 % (0.0-10.0); %Lymphocytes 19.2 % (21.0-51.0); %Monocytes 6.7 % (0.0-10.0); %Neutrophils 70.2 % (42.0-75.0); Hemoglobin 10.5 g/dL (14.0-18.0); Mean Corpuscular Hemoglobin 32.2 pg (27.0-31.0); Mean Corpuscular Volume 97.3 fl (78.0-98.0); Mean Platelet Volume 6.9 fL (7.4-10.4); Platelet Count 129 10x3/uL (130-400); RBC Distribution Width 15.8 % (11.5-14.5); Red Blood Cell (RBC) Count 3.27 mill/uL (4.70-6.10); White Blood Cell (WBC) Count 10.2 10x3/uL (4.8-10.8)
[2022-04-21 07:00] LABS: Anion Gap 12 mmol/L (10-20); BUN (Urea Nitrogen) 29 mg/dL (8.9-20.6); Calc. Creatinine Clearance 94 mL/min (70-130); Calcium 9.2 mg/dL (7.8-10.44); Carbon Dioxide 28 mmol/L (22-29); Chloride 102 mmol/L (98-107); Estimated GFR 63; Glucose 137 mg/dL (70-105); Magnesium 1.9 mg/dL (1.6-2.6); Potassium 4.5 mmol/L (3.5-5.1); Sodium 137 mmol/L (136-145)
[2022-04-21] MEDS ORDERED: Magnesium 2 GM/50 ML(in water) 2 GM in Premix Bag 1 BAG IVPB SCH (08:00)
[2022-04-21] MEDS: Pantoprazole 40 MG VIAL IVP SCH (08:50)
[2022-04-21] MEDS: Amiodarone 200 MG TAB PO SCH (08:50)
[2022-04-21] MEDS: Senokot S 8.6-50 MG TAB PO SCH (08:50)
[2022-04-21] MEDS: Sertraline 25 MG TAB PER TUBE SCH (08:50)
[2022-04-21] MEDS: Scopolamine 1.5 mg/72 hour Patch TD SCH (08:50)
[2022-04-21] MEDS: Carvedilol 6.25 MG TAB PER TUBE SCH ×2 (08:50→20:15)
[2022-04-21] MEDS: Spironolactone 25 MG TAB PER TUBE SCH (08:50)
[2022-04-21] MEDS: Aspirin 81 mg Enteric Coated Tablet PO SCH (08:50)
[2022-04-21] MEDS: Furosemide 20 MG/2 ML VIAL SLOW IVP SCH (08:51)
[2022-04-21] MEDS: Polyethylene Glycol 3350 17 GM Packet PER TUBE SCH (08:51)
[2022-04-21] MEDS: Atorvastatin Calcium 20 MG TAB PO SCH (20:15)
[2022-04-21] MEDS: Acetaminophen 325 MG TAB PER TUBE PRN (20:15)
[2022-04-21] MEDS: QUEtiapine 25 MG TAB PO SCH (20:15)
[2022-04-21] MEDS: Mirtazapine 15 MG Soltab PO SCH (20:15)
[2022-04-22] MEDS: Lorazepam 2 MG/ML VIAL SLOW IVP PRN ×3 (00:16→18:59)
[2022-04-22 04:12] LABS: #Eosinphils 0.3 thou/uL (0.0-0.7); #Lymphocytes 2.1 thou/uL (1.20-3.40); #Monocytes 0.6 thou/uL (0.11-0.59); #Neutrophils 5.4 thou/uL (1.40-6.50); %Basophils 0.1 % (0.0-1.0); %Eosinophils 4.1 % (0.0-10.0); %Lymphocytes 24.5 % (21.0-51.0); %Monocytes 7.3 % (0.0-10.0); Hemoglobin 10.3 g/dL (14.0-18.0); Mean Corpuscular HGB CONC 33.4 g/dL (32.0-36.0); Mean Corpuscular Hemoglobin 32.4 pg (27.0-31.0); Mean Platelet Volume 7.3 fL (7.4-10.4); Platelet Count 119 10x3/uL (130-400); RBC Distribution Width 15.8 % (11.5-14.5); Red Blood Cell (RBC) Count 3.17 mill/uL (4.70-6.10); White Blood Cell (WBC) Count 8.4 10x3/uL (4.8-10.8)
[2022-04-22 04:28] LABS: Anion Gap 8 mmol/L (10-20); BUN (Urea Nitrogen) 24 mg/dL (8.9-20.6); Calc. Creatinine Clearance 122 mL/min (70-130); Calcium 8.8 mg/dL (7.8-10.44); Carbon Dioxide 27 mmol/L (22-29); Chloride 105 mmol/L (98-107); Estimated GFR 86; Glucose 131 mg/dL (70-105); Potassium 4.2 mmol/L (3.5-5.1); Sodium 136 mmol/L (136-145)
[2022-04-22] MEDS: Meropenem 1 GM in Sodium Chloride 0.9% 100 ML IVPB SCH ×3 (04:43→20:42)
[2022-04-22] MEDS: Levothyroxine Sodium 50 MCG TAB PO SCH (04:43)
[2022-04-22] MEDS: Sertraline 25 MG TAB PER TUBE SCH (08:25)
[2022-04-22] MEDS: Senokot S 8.6-50 MG TAB PO SCH (08:25)
[2022-04-22] MEDS: Furosemide 20 MG/2 ML VIAL SLOW IVP SCH (08:25)
[2022-04-22] MEDS: Aspirin 81 mg Enteric Coated Tablet PO SCH (08:25)
[2022-04-22] MEDS: Pantoprazole 40 MG VIAL IVP SCH (08:25)
[2022-04-22] MEDS: Carvedilol 6.25 MG TAB PER TUBE SCH ×2 (08:26→20:41)
[2022-04-22] MEDS: Spironolactone 25 MG TAB PER TUBE SCH (08:26)
[2022-04-22] MEDS: Polyethylene Glycol 3350 17 GM Packet PER TUBE SCH (08:26)
[2022-04-22] MEDS: Amiodarone 200 MG TAB PO SCH (08:26)
[2022-04-22] MEDS ORDERED: Magnesium 2 GM/50 ML(in water) 2 GM in Premix Bag 1 BAG IVPB SCH (09:00)
[2022-04-22] MEDS: QUEtiapine 25 MG TAB PO SCH (20:41)
[2022-04-22] MEDS: Atorvastatin Calcium 20 MG TAB PO SCH (20:41)
[2022-04-22] MEDS: Mirtazapine 15 MG Soltab PO SCH (21:26)
[2022-04-23] MEDS: Lorazepam 2 MG/ML VIAL SLOW IVP PRN ×4 (02:10→23:36)
[2022-04-23 04:33] LABS: #Eosinphils 0.5 thou/uL (0.0-0.7); #Lymphocytes 2.4 thou/uL (1.20-3.40); #Monocytes 0.6 thou/uL (0.11-0.59); #Neutrophils 5.3 thou/uL (1.40-6.50); %Basophils 0.1 % (0.0-1.0); %Eosinophils 6.2 % (0.0-10.0); %Lymphocytes 26.8 % (21.0-51.0); %Monocytes 6.2 % (0.0-10.0); %Neutrophils 60.7 % (42.0-75.0); Mean Corpuscular HGB CONC 32.6 g/dL (32.0-36.0); Mean Corpuscular Hemoglobin 31.2 pg (27.0-31.0); Mean Corpuscular Volume 95.8 fl (78.0-98.0); Mean Platelet Volume 7.7 fL (7.4-10.4); Platelet Count 113 10x3/uL (130-400); RBC Distribution Width 15.7 % (11.5-14.5); White Blood Cell (WBC) Count 8.8 10x3/uL (4.8-10.8)
[2022-04-23 04:48] LABS: Phosphorus 2.7 mg/dL (2.3-4.7)
[2022-04-23 04:57] LABS: ALT (SGPT) 14 U/L (8-55); AST (SGOT) 22 U/L (5-34); Albumin 3.3 g/dL (3.5-5.0); Alkaline Phosphatase 146 U/L (40-110); Anion Gap 14 mmol/L (10-20); BUN (Urea Nitrogen) 19 mg/dL (8.9-20.6); Bilirubin, Total 1.7 mg/dL (0.2-1.2); Calc. Creatinine Clearance 119 mL/min (70-130); Calcium 8.9 mg/dL (7.8-10.44); Carbon Dioxide 24 mmol/L (22-29); Chloride 101 mmol/L (98-107); Estimated GFR 85; Globulin 3.9 g/dL (2.4-3.5); Glucose 124 mg/dL (70-105); Magnesium 1.9 mg/dL (1.6-2.6); Potassium 4.3 mmol/L (3.5-5.1); Protein, Total 7.2 g/dL (6.0-8.3); Sodium 135 mmol/L (136-145)
[2022-04-23] MEDS: Levothyroxine Sodium 50 MCG TAB PO SCH (05:41)
[2022-04-23] MEDS: Meropenem 1 GM in Sodium Chloride 0.9% 100 ML IVPB SCH ×3 (05:41→19:37)
[2022-04-23] MEDS: Spironolactone 25 MG TAB PER TUBE SCH (07:45)
[2022-04-23] MEDS: Senokot S 8.6-50 MG TAB PO SCH (07:45)
[2022-04-23] MEDS: Aspirin 81 mg Enteric Coated Tablet PO SCH (07:45)
[2022-04-23] MEDS: Amiodarone 200 MG TAB PO SCH (07:45)
[2022-04-23] MEDS: Carvedilol 6.25 MG TAB PER TUBE SCH ×2 (07:45→19:30)
[2022-04-23] MEDS: Sertraline 25 MG TAB PER TUBE SCH (07:45)
[2022-04-23] MEDS: Furosemide 20 MG/2 ML VIAL SLOW IVP SCH (07:46)
[2022-04-23] MEDS: Polyethylene Glycol 3350 17 GM Packet PER TUBE SCH (07:46)
[2022-04-23] MEDS: Pantoprazole 40 MG VIAL IVP SCH (07:46)
[2022-04-23] MEDS ORDERED: Furosemide 20 MG/2 ML VIAL SLOW IVP SCH (09:00)
[2022-04-23] MEDS ORDERED: Magnesium 2 GM/50 ML(in water) 2 GM in Premix Bag 1 BAG IVPB SCH (09:00)
[2022-04-23] MEDS: Atorvastatin Calcium 20 MG TAB PO SCH (19:30)
[2022-04-23] MEDS: QUEtiapine 25 MG TAB PO SCH (19:30)
[2022-04-23] MEDS: Mirtazapine 15 MG Soltab PO SCH (19:32)
[2022-04-23] MEDS: Ondansetron PF 4 MG/2 ML Vial IVP PRN (23:12)
[2022-04-24] MEDS ORDERED: Promethazine HCl 12.5 MG in Sodium Chloride 0.9% 50 ML IVPB SCH (03:15)
[2022-04-24] MEDS: Lorazepam 2 MG/ML VIAL SLOW IVP PRN ×3 (03:36→23:26)
[2022-04-24 04:35] LABS: #Eosinphils 0.6 thou/uL (0.0-0.7); #Lymphocytes 2.1 thou/uL (1.20-3.40); #Monocytes 0.5 thou/uL (0.11-0.59); #Neutrophils 4.6 thou/uL (1.40-6.50); %Basophils 0.6 % (0.0-1.0); %Eosinophils 7.3 % (0.0-10.0); %Lymphocytes 27.1 % (21.0-51.0); %Monocytes 6.7 % (0.0-10.0); %Neutrophils 58.4 % (42.0-75.0); Hemoglobin 10.1 g/dL (14.0-18.0); Mean Corpuscular HGB CONC 32.2 g/dL (32.0-36.0); Mean Corpuscular Hemoglobin 31.5 pg (27.0-31.0); Mean Platelet Volume 7.2 fL (7.4-10.4); Platelet Count 128 10x3/uL (130-400); RBC Distribution Width 15.6 % (11.5-14.5); White Blood Cell (WBC) Count 7.9 10x3/uL (4.8-10.8)
[2022-04-24 04:54] LABS: Phosphorus 3.1 mg/dL (2.3-4.7)
[2022-04-24 04:57] LABS: Anion Gap 13 mmol/L (10-20); BUN (Urea Nitrogen) 15 mg/dL (8.9-20.6); Calc. Creatinine Clearance 117 mL/min (70-130); Calcium 8.8 mg/dL (7.8-10.44); Carbon Dioxide 24 mmol/L (22-29); Chloride 100 mmol/L (98-107); Estimated GFR 83; Glucose 111 mg/dL (70-105); Potassium 4.5 mmol/L (3.5-5.1); Sodium 132 mmol/L (136-145)
[2022-04-24] MEDS: Meropenem 1 GM in Sodium Chloride 0.9% 100 ML IVPB SCH ×2 (05:01→12:34)
[2022-04-24] MEDS: Ipratropium/Albuterol 3 ML NEB EZPAP PRN (05:41)
[2022-04-24] MEDS: Levothyroxine Sodium 50 MCG TAB PO SCH (06:26)
[2022-04-24] MEDS ORDERED: Magnesium 2 GM/50 ML(in water) 2 GM in Premix Bag 1 BAG IVPB SCH (08:00)
[2022-04-24] MEDS: Scopolamine 1.5 mg/72 hour Patch TD SCH (10:02)
[2022-04-24] MEDS: Pantoprazole 40 MG VIAL IVP SCH (10:02)
[2022-04-24] MEDS: Polyethylene Glycol 3350 17 GM Packet PER TUBE SCH (10:03)
[2022-04-24] MEDS: Amiodarone 200 MG TAB PO SCH (10:03)
[2022-04-24] MEDS: Aspirin 81 mg Enteric Coated Tablet PO SCH (10:03)
[2022-04-24] MEDS: Furosemide 20 MG/2 ML VIAL SLOW IVP SCH ×2 (10:03→20:55)
[2022-04-24] MEDS: Spironolactone 25 MG TAB PER TUBE SCH (10:03)
[2022-04-24] MEDS: Senokot S 8.6-50 MG TAB PO SCH (10:04)
[2022-04-24] MEDS: Carvedilol 6.25 MG TAB PER TUBE SCH ×2 (10:04→21:00)
[2022-04-24] MEDS: Sertraline 25 MG TAB PER TUBE SCH (10:04)
[2022-04-24] MEDS: QUEtiapine 25 MG TAB PO SCH (20:54)
[2022-04-24] MEDS: Atorvastatin Calcium 20 MG TAB PO SCH (20:54)
[2022-04-24] MEDS: Mirtazapine 15 MG Soltab PO SCH (20:54)
[2022-04-25] MEDS: Acetaminophen 325 MG TAB PER TUBE PRN (02:09)
[2022-04-25 04:23] LABS: #Basophils 0.1 thou/uL (0.0-0.2); #Eosinphils 0.7 thou/uL (0.0-0.7); #Lymphocytes 2.3 thou/uL (1.20-3.40); #Monocytes 0.7 thou/uL (0.11-0.59); #Neutrophils 4.8 thou/uL (1.40-6.50); %Basophils 0.6 % (0.0-1.0); %Eosinophils 7.8 % (0.0-10.0); %Lymphocytes 27.3 % (21.0-51.0); %Monocytes 7.8 % (0.0-10.0); %Neutrophils 56.5 % (42.0-75.0); Hemoglobin 9.7 g/dL (14.0-18.0); Mean Corpuscular HGB CONC 33.1 g/dL (32.0-36.0); Mean Corpuscular Hemoglobin 31.8 pg (27.0-31.0); Mean Corpuscular Volume 96.1 fl (78.0-98.0); Mean Platelet Volume 7.1 fL (7.4-10.4); Platelet Count 111 10x3/uL (130-400); RBC Distribution Width 15.5 % (11.5-14.5); Red Blood Cell (RBC) Count 3.06 mill/uL (4.70-6.10); White Blood Cell (WBC) Count 8.4 10x3/uL (4.8-10.8)
[2022-04-25 04:37] LABS: Anion Gap 10 mmol/L (10-20); BUN (Urea Nitrogen) 17 mg/dL (8.9-20.6); Calc. Creatinine Clearance 110 mL/min (70-130); Calcium 8.7 mg/dL (7.8-10.44); Carbon Dioxide 28 mmol/L (22-29); Chloride 99 mmol/L (98-107); Estimated GFR 77; Glucose 146 mg/dL (70-105); Magnesium 1.9 mg/dL (1.6-2.6); Potassium 4.2 mmol/L (3.5-5.1); Sodium 133 mmol/L (136-145)
[2022-04-25] MEDS: Lorazepam 2 MG/ML VIAL SLOW IVP PRN ×2 (05:48→20:20)
[2022-04-25] MEDS: Levothyroxine Sodium 50 MCG TAB PO SCH (05:48)
[2022-04-25] MEDS ORDERED: Magnesium 2 GM/50 ML(in water) 2 GM in Premix Bag 1 BAG IVPB SCH (08:00)
[2022-04-25] MEDS: Aspirin 81 mg Enteric Coated Tablet PO SCH (10:32)
[2022-04-25] MEDS: Amiodarone 200 MG TAB PO SCH (10:32)
[2022-04-25] MEDS: Polyethylene Glycol 3350 17 GM Packet PER TUBE SCH (10:32)
[2022-04-25] MEDS: Carvedilol 6.25 MG TAB PER TUBE SCH ×2 (10:32→20:20)
[2022-04-25] MEDS: Spironolactone 25 MG TAB PER TUBE SCH (10:32)
[2022-04-25] MEDS: Sertraline 25 MG TAB PER TUBE SCH (10:32)
[2022-04-25] MEDS: Empagliflozin 10 MG TAB PO SCH (10:33)
[2022-04-25] MEDS: Senokot S 8.6-50 MG TAB PO SCH (10:33)
[2022-04-25] MEDS: Furosemide 20 MG/2 ML VIAL SLOW IVP SCH ×2 (10:33→20:21)
[2022-04-25] MEDS: Pantoprazole 40 MG VIAL IVP SCH (10:33)
[2022-04-25] MEDS: QUEtiapine 25 MG TAB PO SCH (20:20)
[2022-04-25] MEDS: Mirtazapine 15 MG Soltab PO SCH (20:20)
[2022-04-25] MEDS: Atorvastatin Calcium 40 MG TAB PO SCH (20:20)
[2022-04-25] MEDS ORDERED: traMADol HCl 50 MG TAB PO SCH (22:30)
[2022-04-26] MEDS: Acetaminophen 325 MG TAB PER TUBE PRN (02:14)
[2022-04-26 05:06] LABS: SARS-CoV-2 NAA Rapid Test Not Detected (NotDetected)
[2022-04-26 05:31] LABS: #Basophils 0.1 thou/uL (0.0-0.2); #Eosinphils 0.6 thou/uL (0.0-0.7); #Lymphocytes 2.7 thou/uL (1.20-3.40); #Monocytes 0.7 thou/uL (0.11-0.59); #Neutrophils 4.4 thou/uL (1.40-6.50); %Basophils 0.7 % (0.0-1.0); %Eosinophils 6.6 % (0.0-10.0); %Lymphocytes 32.3 % (21.0-51.0); %Monocytes 8.2 % (0.0-10.0); %Neutrophils 52.3 % (42.0-75.0); Hemoglobin 9.6 g/dL (14.0-18.0); Mean Corpuscular HGB CONC 32.9 g/dL (32.0-36.0); Mean Corpuscular Hemoglobin 31.6 pg (27.0-31.0); Platelet Count 120 10x3/uL (130-400); RBC Distribution Width 15.7 % (11.5-14.5); Red Blood Cell (RBC) Count 3.04 mill/uL (4.70-6.10); White Blood Cell (WBC) Count 8.4 10x3/uL (4.8-10.8)
[2022-04-26 05:48] LABS: Phosphorus 3.2 mg/dL (2.3-4.7)
[2022-04-26 05:50] LABS: Anion Gap 12 mmol/L (10-20); BUN (Urea Nitrogen) 19 mg/dL (8.9-20.6); Calc. Creatinine Clearance 108 mL/min (70-130); Calcium 8.6 mg/dL (7.8-10.44); Carbon Dioxide 28 mmol/L (22-29); Chloride 95 mmol/L (98-107); Estimated GFR 76; Glucose 130 mg/dL (70-105); Potassium 4.5 mmol/L (3.5-5.1); Sodium 130 mmol/L (136-145)
[2022-04-26] MEDS: Levothyroxine Sodium 50 MCG TAB PO SCH (06:00)
[2022-04-26] MEDS: Carvedilol 6.25 MG TAB PER TUBE SCH ×2 (06:01→21:23)
[2022-04-26] MEDS ORDERED: Magnesium 2 GM/50 ML(in water) 2 GM in Premix Bag 1 BAG IVPB SCH (08:00)
[2022-04-26] MEDS ORDERED: PROPOFOL 200 MG/20 ML VIAL ONE (09:41)
[2022-04-26] MEDS ORDERED: Lidocaine 1% PF 5 ML VIAL ONE (09:41)
[2022-04-26] MEDS ORDERED: CEFAZOLIN 2 GM VIAL ONE (09:42)
[2022-04-26] MEDS ORDERED: Sodium Chloride 0.9% 100 ML ONE (09:42)
[2022-04-26] MEDS ORDERED: Promethazine HCl 25 MG/ML VIAL IM PRN (10:12)
[2022-04-26] MEDS ORDERED: Ondansetron HCl/PF 4 MG/2 ML Vial IVP PRN (10:12)
[2022-04-26] MEDS: Pantoprazole 40 MG VIAL IVP SCH (11:35)
[2022-04-26] MEDS: Amiodarone 200 MG TAB PO SCH (11:36)
[2022-04-26] MEDS: Empagliflozin 10 MG TAB PO SCH (11:36)
[2022-04-26] MEDS: Polyethylene Glycol 3350 17 GM Packet PER TUBE SCH (11:36)
[2022-04-26] MEDS: Aspirin 81 mg Enteric Coated Tablet PO SCH (11:36)
[2022-04-26] MEDS: Spironolactone 25 MG TAB PER TUBE SCH (11:36)
[2022-04-26] MEDS: Senokot S 8.6-50 MG TAB PO SCH (11:37)
[2022-04-26] MEDS: Sertraline 25 MG TAB PER TUBE SCH (11:37)
[2022-04-26] MEDS: Morphine 2 MG/ML VIAL SLOW IVP PRN ×3 (14:25→21:24)
[2022-04-26] MEDS: QUEtiapine 25 MG TAB PO SCH (21:23)
[2022-04-26] MEDS: Mirtazapine 15 MG Soltab PO SCH (21:24)
[2022-04-26] MEDS: Atorvastatin Calcium 40 MG TAB PO SCH (21:24)
[2022-04-26] MEDS: Lorazepam 2 MG/ML VIAL SLOW IVP PRN (21:26)
[2022-04-27] MEDS: Morphine 2 MG/ML VIAL SLOW IVP PRN ×4 (02:25→19:44)
[2022-04-27] MEDS: Acetaminophen 325 MG TAB PER TUBE PRN ×2 (04:28→23:18)
[2022-04-27] MEDS: Levothyroxine Sodium 50 MCG TAB PO SCH (05:28)
[2022-04-27] MEDS ORDERED: Sodium Chloride 0.9% 500 ML IVPB SCH (06:00)
[2022-04-27 06:01] LABS: #Eosinphils 0.5 thou/uL (0.0-0.7); #Lymphocytes 1.8 thou/uL (1.20-3.40); #Monocytes 0.6 thou/uL (0.11-0.59); #Neutrophils 4.2 thou/uL (1.40-6.50); %Basophils 0.6 % (0.0-1.0); %Eosinophils 6.8 % (0.0-10.0); %Lymphocytes 25.7 % (21.0-51.0); %Neutrophils 58.8 % (42.0-75.0); Mean Corpuscular HGB CONC 33.4 g/dL (32.0-36.0); Mean Corpuscular Hemoglobin 31.8 pg (27.0-31.0); Mean Corpuscular Volume 95.1 fl (78.0-98.0); Mean Platelet Volume 6.9 fL (7.4-10.4); Platelet Count 118 10x3/uL (130-400); RBC Distribution Width 15.5 % (11.5-14.5); Red Blood Cell (RBC) Count 3.14 mill/uL (4.70-6.10); White Blood Cell (WBC) Count 7.1 10x3/uL (4.8-10.8)
[2022-04-27 06:28] LABS: Anion Gap 10 mmol/L (10-20); BUN (Urea Nitrogen) 19 mg/dL (8.9-20.6); Calc. Creatinine Clearance 111 mL/min (70-130); Carbon Dioxide 28 mmol/L (22-29); Chloride 98 mmol/L (98-107); Estimated GFR 81; Glucose 141 mg/dL (70-105); Magnesium 1.9 mg/dL (1.6-2.6); Potassium 4.5 mmol/L (3.5-5.1); Sodium 131 mmol/L (136-145)
[2022-04-27] MEDS ORDERED: Magnesium 2 GM/50 ML(in water) 2 GM in Premix Bag 1 BAG IVPB SCH (08:00)
[2022-04-27] MEDS: Polyethylene Glycol 3350 17 GM Packet PER TUBE SCH (09:51)
[2022-04-27] MEDS: Spironolactone 25 MG TAB PER TUBE SCH (09:51)
[2022-04-27] MEDS: Empagliflozin 10 MG TAB PO SCH (09:51)
[2022-04-27] MEDS: Amiodarone 200 MG TAB PO SCH (09:51)
[2022-04-27] MEDS: Sertraline 25 MG TAB PER TUBE SCH (09:52)
[2022-04-27] MEDS: Scopolamine 1.5 mg/72 hour Patch TD SCH (09:52)
[2022-04-27] MEDS: Pantoprazole 40 MG VIAL IVP SCH (09:52)
[2022-04-27] MEDS: Aspirin Chewable 81 MG TAB PO SCH (09:52)
[2022-04-27] MEDS: Senokot S 8.6-50 MG TAB PO SCH (09:52)
[2022-04-27] MEDS: Carvedilol 6.25 MG TAB PER TUBE SCH ×2 (09:55→19:38)
[2022-04-27] MEDS ORDERED: Morphine 2 MG/ML VIAL SLOW IVP SCH (10:53)
[2022-04-27] MEDS: Lorazepam 2 MG/ML VIAL SLOW IVP PRN (12:02)
[2022-04-27] MEDS ORDERED: HYDROcodone/Acetaminophen 7.5/325 mg Tablet PO PRN ×2 (16:22→17:03)
[2022-04-27] MEDS: HYDROcodone/Acetaminophen 7.5/325 mg Tablet PO PRN ×3 (17:13→23:01)
[2022-04-27] MEDS: Atorvastatin Calcium 40 MG TAB PO SCH (19:38)
[2022-04-27] MEDS: QUEtiapine 25 MG TAB PO SCH (19:39)
[2022-04-27] MEDS: Mirtazapine 15 MG Soltab PO SCH (19:39)
[2022-04-28] MEDS: Morphine 2 MG/ML VIAL SLOW IVP PRN ×3 (00:50→13:56)
[2022-04-28] MEDS ORDERED: Sodium Chloride 0.9% 500 ML IV SCH ×2 (03:00→05:00)
[2022-04-28 03:42] LABS: Anion Gap 13 mmol/L (10-20); BUN (Urea Nitrogen) 31 mg/dL (8.9-20.6); Calc. Creatinine Clearance 96 mL/min (70-130); Calcium 8.6 mg/dL (7.8-10.44); Carbon Dioxide 25 mmol/L (22-29); Chloride 97 mmol/L (98-107); Estimated GFR 68; Glucose 188 mg/dL (70-105); Magnesium 2.3 mg/dL (1.6-2.6); Potassium 5.2 mmol/L (3.5-5.1); Sodium 130 mmol/L (136-145)
[2022-04-28 03:43] LABS: #Eosinphils 0.2 thou/uL (0.0-0.7); #Lymphocytes 1.7 thou/uL (1.20-3.40); #Monocytes 0.9 thou/uL (0.11-0.59); #Neutrophils 7.7 thou/uL (1.40-6.50); %Basophils 0.3 % (0.0-1.0); %Eosinophils 1.7 % (0.0-10.0); %Lymphocytes 16.3 % (21.0-51.0); %Neutrophils 72.7 % (42.0-75.0); Hemoglobin 9.4 g/dL (14.0-18.0); Mean Corpuscular HGB CONC 33.5 g/dL (32.0-36.0); Mean Corpuscular Hemoglobin 31.8 pg (27.0-31.0); Platelet Count 114 10x3/uL (130-400); RBC Distribution Width 15.6 % (11.5-14.5); Red Blood Cell (RBC) Count 2.94 mill/uL (4.70-6.10); White Blood Cell (WBC) Count 10.5 10x3/uL (4.8-10.8)
[2022-04-28] MEDS: Levothyroxine Sodium 50 MCG TAB PO SCH (06:09)
[2022-04-28] MEDS: Amiodarone 200 MG TAB PO SCH (08:31)
[2022-04-28] MEDS: Pantoprazole 40 MG VIAL IVP SCH (08:31)
[2022-04-28] MEDS: Senokot S 8.6-50 MG TAB PO SCH (08:31)
[2022-04-28] MEDS: Polyethylene Glycol 3350 17 GM Packet PER TUBE SCH (08:31)
[2022-04-28] MEDS: Aspirin Chewable 81 MG TAB PO SCH (08:32)
[2022-04-28] MEDS: Sertraline 100 MG TAB PER TUBE SCH (08:32)
[2022-04-28] MEDS: Empagliflozin 10 MG TAB PO SCH (08:32)
[2022-04-28] MEDS: Ipratropium/Albuterol 3 ML NEB EZPAP PRN (08:36)
[2022-04-28] MEDS ORDERED: Cosyntropin 250 MCG VIAL SLOW IVP SCH (10:00)
[2022-04-28] MEDS: HYDROcodone/Acetaminophen 7.5/325 mg Tablet PO PRN ×2 (10:41→20:24)
[2022-04-28] MEDS: Spironolactone 25 MG TAB PER TUBE SCH (12:18)
[2022-04-28] MEDS: Lorazepam 2 MG/ML VIAL SLOW IVP PRN ×2 (14:52→20:23)
[2022-04-28] MEDS: QUEtiapine 25 MG TAB PO SCH (20:26)
[2022-04-28] MEDS: Acetaminophen 325 MG TAB PER TUBE PRN (20:26)
[2022-04-28] MEDS: Atorvastatin Calcium 40 MG TAB PO SCH (20:26)
[2022-04-28] MEDS: Mirtazapine 15 MG Soltab PO SCH (20:26)
[2022-04-29] MEDS: Morphine 2 MG/ML VIAL SLOW IVP PRN ×3 (02:06→20:57)
[2022-04-29 04:27] LABS: ALT (SGPT) 8 U/L (8-55); AST (SGOT) 12 U/L (5-34); Albumin 3.1 g/dL (3.5-5.0); Alkaline Phosphatase 133 U/L (40-110); Anion Gap 13 mmol/L (10-20); BUN (Urea Nitrogen) 30 mg/dL (8.9-20.6); Bilirubin, Total 1.1 mg/dL (0.2-1.2); Calc. Creatinine Clearance 124 mL/min (70-130); Calcium 8.7 mg/dL (7.8-10.44); Carbon Dioxide 26 mmol/L (22-29); Chloride 100 mmol/L (98-107); Estimated GFR 91; Globulin 3.6 g/dL (2.4-3.5); Glucose 122 mg/dL (70-105); Magnesium 2.3 mg/dL (1.6-2.6); Potassium 4.4 mmol/L (3.5-5.1); Protein, Total 6.7 g/dL (6.0-8.3); Sodium 135 mmol/L (136-145)
[2022-04-29] MEDS: Lorazepam 2 MG/ML VIAL SLOW IVP PRN ×2 (04:38→20:57)
[2022-04-29] MEDS: Levothyroxine Sodium 50 MCG TAB PO SCH (05:34)
[2022-04-29 07:13] LABS: #Eosinphils 0.2 thou/uL (0.0-0.7); #Lymphocytes 1.9 thou/uL (1.20-3.40); #Monocytes 0.6 thou/uL (0.11-0.59); #Neutrophils 3.4 thou/uL (1.40-6.50); %Basophils 0.1 % (0.0-1.0); %Eosinophils 3.9 % (0.0-10.0); %Lymphocytes 30.6 % (21.0-51.0); %Monocytes 9.3 % (0.0-10.0); %Neutrophils 56.1 % (42.0-75.0); Hemoglobin 9.2 g/dL (14.0-18.0); Mean Corpuscular HGB CONC 31.9 g/dL (32.0-36.0); Mean Corpuscular Hemoglobin 31.1 pg (27.0-31.0); Mean Corpuscular Volume 97.6 fl (78.0-98.0); Mean Platelet Volume 6.6 fL (7.4-10.4); Platelet Count 98 10x3/uL (130-400); RBC Distribution Width 15.4 % (11.5-14.5); Red Blood Cell (RBC) Count 2.96 mill/uL (4.70-6.10); White Blood Cell (WBC) Count 6.1 10x3/uL (4.8-10.8)
[2022-04-29] MEDS: HYDROcodone/Acetaminophen 7.5/325 mg Tablet PO PRN ×2 (09:07→16:58)
[2022-04-29] MEDS: Polyethylene Glycol 3350 17 GM Packet PER TUBE SCH (09:07)
[2022-04-29] MEDS: Pantoprazole 40 MG VIAL IVP SCH (09:08)
[2022-04-29] MEDS: Amiodarone 200 MG TAB PO SCH (09:08)
[2022-04-29] MEDS: Aspirin Chewable 81 MG TAB PO SCH (09:08)
[2022-04-29] MEDS: Sertraline 100 MG TAB PER TUBE SCH (09:08)
[2022-04-29] MEDS: Senokot S 8.6-50 MG TAB PO SCH (09:08)
[2022-04-29] MEDS: Empagliflozin 10 MG TAB PO SCH (09:09)
[2022-04-29] MEDS: Mirtazapine 15 MG Soltab PO SCH (20:59)
[2022-04-29] MEDS: Atorvastatin Calcium 40 MG TAB PO SCH (20:59)
[2022-04-29] MEDS: QUEtiapine 25 MG TAB PO SCH (20:59)
[2022-04-30] MEDS: Morphine 2 MG/ML VIAL SLOW IVP PRN ×4 (01:57→22:08)
[2022-04-30] MEDS: Levothyroxine Sodium 50 MCG TAB PO SCH (05:15)
[2022-04-30] MEDS: Scopolamine 1.5 mg/72 hour Patch TD SCH (07:30)
[2022-04-30 08:10] LABS: #Eosinphils 0.7 thou/uL (0.0-0.7); #Lymphocytes 1.8 thou/uL (1.20-3.40); #Monocytes 0.6 thou/uL (0.11-0.59); #Neutrophils 4.1 thou/uL (1.40-6.50); %Basophils 0.6 % (0.0-1.0); %Eosinophils 9.1 % (0.0-10.0); %Lymphocytes 24.6 % (21.0-51.0); %Monocytes 8.9 % (0.0-10.0); %Neutrophils 56.8 % (42.0-75.0); Hemoglobin 8.7 g/dL (14.0-18.0); Mean Corpuscular HGB CONC 32.5 g/dL (32.0-36.0); Mean Corpuscular Hemoglobin 31.8 pg (27.0-31.0); Platelet Count 125 10x3/uL (130-400); RBC Distribution Width 15.3 % (11.5-14.5); Red Blood Cell (RBC) Count 2.72 mill/uL (4.70-6.10); White Blood Cell (WBC) Count 7.2 10x3/uL (4.8-10.8)
[2022-04-30 08:26] LABS: Anion Gap 14 mmol/L (10-20); BUN (Urea Nitrogen) 25 mg/dL (8.9-20.6); Calc. Creatinine Clearance 132 mL/min (70-130); Calcium 8.5 mg/dL (7.8-10.44); Carbon Dioxide 23 mmol/L (22-29); Chloride 102 mmol/L (98-107); Estimated GFR 98; Glucose 122 mg/dL (70-105); Magnesium 2.1 mg/dL (1.6-2.6); Phosphorus 3.8 mg/dL (2.3-4.7); Potassium 4.6 mmol/L (3.5-5.1); Sodium 134 mmol/L (136-145)
[2022-04-30] MEDS: HYDROcodone/Acetaminophen 7.5/325 mg Tablet PO PRN ×2 (09:25→16:58)
[2022-04-30] MEDS: Polyethylene Glycol 3350 17 GM Packet PER TUBE SCH (09:25)
[2022-04-30] MEDS: Empagliflozin 10 MG TAB PO SCH (09:26)
[2022-04-30] MEDS: Sertraline 100 MG TAB PER TUBE SCH (09:26)
[2022-04-30] MEDS: Amiodarone 200 MG TAB PO SCH (09:26)
[2022-04-30] MEDS: Senokot S 8.6-50 MG TAB PO SCH (09:26)
[2022-04-30] MEDS: Aspirin Chewable 81 MG TAB PO SCH (09:28)
[2022-04-30] MEDS: Pantoprazole 40 MG VIAL IVP SCH (09:34)
[2022-04-30] MEDS: Acetaminophen 325 MG TAB PER TUBE PRN (13:32)
[2022-04-30] MEDS: Mirtazapine 15 MG Soltab PO SCH (20:39)
[2022-04-30] MEDS: Atorvastatin Calcium 40 MG TAB PO SCH (20:40)
[2022-04-30] MEDS: QUEtiapine 25 MG TAB PO SCH (20:40)
[2022-05-01] MEDS: HYDROcodone/Acetaminophen 7.5/325 mg Tablet PO PRN ×4 (01:03→20:19)
[2022-05-01] MEDS: Morphine 2 MG/ML VIAL SLOW IVP PRN ×2 (04:07→10:21)
[2022-05-01 04:36] LABS: #Eosinphils 0.6 thou/uL (0.0-0.7); #Lymphocytes 1.7 thou/uL (1.20-3.40); #Monocytes 0.4 thou/uL (0.11-0.59); #Neutrophils 2.8 thou/uL (1.40-6.50); %Basophils 0.8 % (0.0-1.0); %Eosinophils 10.7 % (0.0-10.0); %Lymphocytes 30.2 % (21.0-51.0); %Monocytes 7.6 % (0.0-10.0); %Neutrophils 50.6 % (42.0-75.0); Hemoglobin 9.6 g/dL (14.0-18.0); Mean Corpuscular HGB CONC 32.8 g/dL (32.0-36.0); Mean Corpuscular Volume 97.6 fl (78.0-98.0); Mean Platelet Volume 6.7 fL (7.4-10.4); Platelet Count 126 10x3/uL (130-400); RBC Distribution Width 15.1 % (11.5-14.5); White Blood Cell (WBC) Count 5.5 10x3/uL (4.8-10.8)
[2022-05-01 05:00] LABS: Phosphorus 4.2 mg/dL (2.3-4.7)
[2022-05-01 05:05] LABS: ALT (SGPT) 9 U/L (8-55); AST (SGOT) 16 U/L (5-34); Albumin 3.4 g/dL (3.5-5.0); Alkaline Phosphatase 140 U/L (40-110); Anion Gap 13 mmol/L (10-20); BUN (Urea Nitrogen) 26 mg/dL (8.9-20.6); Bilirubin, Total 0.9 mg/dL (0.2-1.2); Calc. Creatinine Clearance 118 mL/min (70-130); Carbon Dioxide 27 mmol/L (22-29); Chloride 99 mmol/L (98-107); Estimated GFR 85; Globulin 3.7 g/dL (2.4-3.5); Glucose 137 mg/dL (70-105); Magnesium 2.3 mg/dL (1.6-2.6); Potassium 4.6 mmol/L (3.5-5.1); Protein, Total 7.1 g/dL (6.0-8.3); Sodium 134 mmol/L (136-145)
[2022-05-01] MEDS: Levothyroxine Sodium 50 MCG TAB PO SCH (06:03)
[2022-05-01] MEDS: Senokot S 8.6-50 MG TAB PO SCH (08:05)
[2022-05-01] MEDS: Empagliflozin 10 MG TAB PO SCH (08:05)
[2022-05-01] MEDS: Aspirin Chewable 81 MG TAB PO SCH (08:05)
[2022-05-01] MEDS: Sertraline 100 MG TAB PER TUBE SCH (08:05)
[2022-05-01] MEDS: Amiodarone 200 MG TAB PO SCH (08:05)
[2022-05-01] MEDS: Polyethylene Glycol 3350 17 GM Packet PER TUBE SCH (08:06)
[2022-05-01] MEDS: Pantoprazole 40 MG VIAL IVP SCH (08:07)
[2022-05-01] MEDS: Carvedilol 6.25 MG TAB PO SCH ×2 (10:20→20:18)
[2022-05-01] MEDS: Torsemide 10 MG TAB PO SCH (10:20)
[2022-05-01] MEDS: Acetaminophen 325 MG TAB PER TUBE PRN (17:13)
[2022-05-01 17:42] VITALS: BMI 31.6
[2022-05-01] MEDS: Atorvastatin Calcium 40 MG TAB PO SCH (20:18)
[2022-05-01] MEDS: Mirtazapine 15 MG Soltab PO SCH (20:19)
[2022-05-01] MEDS: QUEtiapine 25 MG TAB PO SCH (20:19)
[2022-05-02] MEDS: Morphine 2 MG/ML VIAL SLOW IVP PRN (00:51)
[2022-05-02] MEDS: Levothyroxine Sodium 50 MCG TAB PO SCH (04:59)
[2022-05-02 07:48] LABS: Anion Gap 16 mmol/L (10-20); BUN (Urea Nitrogen) 28 mg/dL (8.9-20.6); Calc. Creatinine Clearance 126 mL/min (70-130); Calcium 9.2 mg/dL (7.8-10.44); Carbon Dioxide 25 mmol/L (22-29); Chloride 99 mmol/L (98-107); Estimated GFR 91; Glucose 143 mg/dL (70-105); Potassium 4.5 mmol/L (3.5-5.1); Sodium 135 mmol/L (136-145)
[2022-05-02] MEDS: HYDROcodone/Acetaminophen 7.5/325 mg Tablet PO PRN ×2 (07:48→14:19)
[2022-05-02] MEDS: Polyethylene Glycol 3350 17 GM Packet PER TUBE SCH (07:49)
[2022-05-02] MEDS: Aspirin Chewable 81 MG TAB PO SCH (07:49)
[2022-05-02] MEDS: Empagliflozin 10 MG TAB PO SCH (07:49)
[2022-05-02] MEDS: Sertraline 100 MG TAB PER TUBE SCH (07:49)
[2022-05-02] MEDS: Senokot S 8.6-50 MG TAB PO SCH (07:49)
[2022-05-02] MEDS: Carvedilol 6.25 MG TAB PO SCH (07:49)
[2022-05-02 07:50] LABS: #Eosinphils 0.5 thou/uL (0.0-0.7); #Lymphocytes 1.6 thou/uL (1.20-3.40); #Monocytes 0.4 thou/uL (0.11-0.59); #Neutrophils 2.7 thou/uL (1.40-6.50); %Basophils 0.7 % (0.0-1.0); %Lymphocytes 31.2 % (21.0-51.0); %Monocytes 6.9 % (0.0-10.0); %Neutrophils 52.1 % (42.0-75.0); Hemoglobin 9.8 g/dL (14.0-18.0); Mean Corpuscular HGB CONC 32.7 g/dL (32.0-36.0); Mean Corpuscular Hemoglobin 31.3 pg (27.0-31.0); Mean Corpuscular Volume 95.8 fl (78.0-98.0); Mean Platelet Volume 6.8 fL (7.4-10.4); Platelet Count 133 10x3/uL (130-400); RBC Distribution Width 14.9 % (11.5-14.5); Red Blood Cell (RBC) Count 3.13 mill/uL (4.70-6.10); White Blood Cell (WBC) Count 5.1 10x3/uL (4.8-10.8)
[2022-05-02] MEDS: Amiodarone 200 MG TAB PO SCH (07:50)
[2022-05-02 07:54] VITALS: BP 116/63
[2022-05-02] MEDS: Torsemide 10 MG TAB PO SCH (07:54)
[2022-05-02] MEDS ORDERED: Lansoprazole 15 MG/5 ML (BATCHED)UDCUP PER TUBE SCH (09:00)
[2022-05-02] MEDS ORDERED: Magnesium 2 GM/50 ML(in water) 2 GM in Premix Bag 1 BAG IVPB SCH (11:00)
[2022-05-02 11:47] VITALS: TEMP 98.1
[2022-05-02] MEDS ORDERED: Atorvastatin Calcium 40 MG TAB PO SCH (21:00)
== END 2022-05-02 15:16 | DRG 177 ==
LOC: CCU 18:34 → IMCU/EMU 04-18 14:28
PROVIDERS: ADMIT Internal Medicine; ATTEND Hospitalist
PROC: 0DH63UZ Insertion of Feeding Device into Stomach, Percutaneous Approach (ICD-10-PCS; principal; 2022-04-26)
DX: J15.1 Pneumonia due to Pseudomonas (principal); I50.23 Acute on chronic systolic (congestive) heart failure; J96.01 Acute respiratory failure with hypoxia; N17.9 Acute kidney failure, unspecified; I13.0 Hypertensive heart and chronic kidney disease with heart failure and stage 1 through stage 4 chronic kidney disease, or unspecified chronic kidney disease; N18.4 Chronic kidney disease, stage 4 (severe); E87.0 Hyperosmolality and hypernatremia; Z20.822 Contact with and (suspected) exposure to COVID-19; I25.10 Atherosclerotic heart disease of native coronary artery without angina pectoris; F17.210 Nicotine dependence, cigarettes, uncomplicated; J45.909 Unspecified asthma, uncomplicated; I27.20 Pulmonary hypertension, unspecified; R13.12 Dysphagia, oropharyngeal phase; E03.9 Hypothyroidism, unspecified; D63.1 Anemia in chronic kidney disease; I25.5 Ischemic cardiomyopathy; F32.A Depression, unspecified; E87.6 Hypokalemia; Z95.5 Presence of coronary angioplasty implant and graft; Z95.1 Presence of aortocoronary bypass graft; Z79.51 Long term (current) use of inhaled steroids; Z79.899 Other long term (current) drug therapy; Z90.49 Acquired absence of other specified parts of digestive tract; Z93.0 Tracheostomy status; Z79.890 Hormone replacement therapy
CPT/HCPCS: 36415; 36416; 71045; 74018; 74176; 74230; 76770; 80048; 80053; 80400; 83036; 83735; 84100; 84145; 85025; 87040; 87070; 87205; 87811; 93306; 94640; 97139; C9113; J0834; J1250; J1650; J1940; J2060; J2185; J2272; J2405; J2550; J2704; J3475; J3480; J3490; J7030; J7070; J7620; U0002

== ENCOUNTER 2022-05-05 10:53 | Outpatient (CLI) | payer OTHER | END 2022-05-05 10:54 | disposition home or self-care (01) | LOC: RAD 10:53 | PROVIDERS: ATTEND Physical Medicine & Rehabilitation | DX: I69.891 Dysphagia following other cerebrovascular disease (principal); R13.10 Dysphagia, unspecified; R63.30 Feeding difficulties, unspecified | CPT/HCPCS: 74230 ==